=== PATIENT | male | born 1965 | race Caucasian/White ===

== ENCOUNTER 2024-05-21 20:00 | Outpatient (REF) | payer OTHER, SELFPAY ==
[2024-05-23 13:09] LABS: Internal Control Within Normal Limits; Occult Blood Positive
== END 2024-05-21 20:01 | disposition home or self-care (01) ==
LOC: LAB 20:00
PROVIDERS: Family Provider Family Medicine; PCP Family Medicine; Visit Provider Family Medicine
DX: R22.1 Localized swelling, mass and lump, neck (principal); R73.09 Other abnormal glucose; Z12.12 Encounter for screening for malignant neoplasm of rectum; Z12.5 Encounter for screening for malignant neoplasm of prostate
CPT/HCPCS: G0328

== ENCOUNTER 2024-05-23 08:40 | Outpatient (OUT) | payer OTHER, SELFPAY ==
[2024-05-23 09:22] LABS: Basophils Absolute Auto 0.1 10^3/uL (0.0-0.1); Basophils Percent Auto 0.4 % (0.2-2.0); Eosinophils Absolute Auto 0.6 10^3/uL (0.0-0.7); Eosinophils Percent Auto 4.2 % (0.9-7.0); Hemoglobin 11.3 g/dL (14.0-18.0); Immature Granulocytes Abs Auto 0.08 10^3/uL (0.00-0.03); Immature Granulocytes Pct Auto 0.6 % (0.0-0.5); Lymphocytes Absolute Auto 2.6 10^3/uL (1.2-3.8); Lymphocytes Percent Auto 17.9 % (20.5-60.0); Mean Corpuscular HGB Conc 31.4 g/dL (29.9-35.2); Mean Corpuscular Hemoglobin 30.6 pg (25.9-34.0); Mean Corpuscular Volume 97.6 fL (80.0-94.0); Mean Platelet Volume 8.6 fL (9.5-13.5); Monocytes Absolute Auto 1.4 10^3/uL (0.3-0.8); Monocytes Percent Auto 9.5 % (1.7-12.0); Neutrophils Absolute Auto 9.6 10^3/uL (1.4-6.5); Neutrophils Percent Auto 67.4 % (43.0-75.0); Platelet Count 696 10^3/uL (150-450); Red Blood Count 3.69 10^6/uL (4.70-6.10); Red Cell Distribution Width 12.9 % (11.0-15.0); White Blood Count 14.3 10^3/uL (4.0-11.0)
[2024-05-23 09:27] LABS: Estimated Average Glucose 131 mg/dL; Glycohemoglobin A1C 6.2 % (4.5-6.2)
[2024-05-23 12:22] LABS: Alanine Aminotransferase 36 U/L (16-63); Albumin Globulin Ratio 0.7; Albumin Level 2.9 g/dL (3.4-5.0); Alkaline Phosphatase 156 U/L (46-116); Anion Gap 8.6; Aspartate Amino Transferase 15 U/L (15-37); BUN Creatinine Ratio 10.4; Bilirubin Total 0.2 mg/dL (0.2-1.0); Calcium 8.6 mg/dL (8.5-10.1); Chloride 99 mmol/L (98-107); Estimated GFR (African America >60 (>=60); Estimated GFR (Non-African Ame >60 (>=60); Free T3 3.37 pg/mL (2.18-3.98); Glucose 90 mg/dL (74-106); Potassium 3.6 mmol/L (3.5-5.1); Sodium 139 mmol/L (136-145); Total Protein 6.9 g/dL (6.4-8.2); Uric Acid 3.3 mg/dL (3.5-7.2)
[2024-05-23 12:47] LABS: Prostate Specific Antigen Scrn 1.79 ng/mL (<=4.00)
[2024-05-25 11:22] LABS: Alanine Aminotransferase 33 U/L (16-63); Albumin Globulin Ratio 0.7; Albumin Level 2.9 g/dL (3.4-5.0); Alkaline Phosphatase 160 U/L (46-116); Anion Gap 11.3; Aspartate Amino Transferase 17 U/L (15-37); BUN Creatinine Ratio 9.6; Bilirubin Total 0.2 mg/dL (0.2-1.0); Calcium 8.8 mg/dL (8.5-10.1); Carbon Dioxide 32.3 mmol/L (21.0-32.0); Chloride 99 mmol/L (98-107); Chol HDL Ratio 2.5; Cholesterol 113 mg/dL (<=200); Estimated GFR (African America >60 (>=60); Estimated GFR (Non-African Ame >60 (>=60); Glucose 91 mg/dL (74-106); HDL Cholesterol 46 mg/dL (40-60); Potassium 3.6 mmol/L (3.5-5.1); Sodium 139 mmol/L (136-145); Total Protein 6.9 g/dL (6.4-8.2); Triglycerides 155 mg/dL (<=150)
[2024-05-25 13:44] LABS: Thyroid Stimulating Hormone 1.439 uIU/mL (0.358-3.740)
[2024-05-26 04:11] LABS: CEA 4.8 ng/mL (0.0-4.7)
== END 2024-05-23 08:41 | disposition home or self-care (01) ==
PROVIDERS: Family Provider Family Medicine; PCP Family Medicine; Visit Provider Family Medicine
DX: Z00.00 Encounter for general adult medical examination without abnormal findings (principal); Z12.5 Encounter for screening for malignant neoplasm of prostate; R22.1 Localized swelling, mass and lump, neck; E78.5 Hyperlipidemia, unspecified; M10.9 Gout, unspecified; F41.9 Anxiety disorder, unspecified; R97.20 Elevated prostate specific antigen [PSA]; E11.9 Type 2 diabetes mellitus without complications
CPT/HCPCS: 36415; 80053; 80061; 82378; 83036; 84153; 84436; 84443; 84481; 84550; 85025; 86301; G0103

== ENCOUNTER 2024-06-11 16:05 | Outpatient (OUT) | payer OTHER, SELFPAY ==
--- NOTE | 2024-06-11 16:13 | US_ITS ---
The [address] [address] Patient Name: LOKESH ALTAMIRANO MRN: [id number] date: 1965 Sex: M Assigned Patient Location: US Current Patient Location: Accession/Order Number: [id number] Exam Date: 06/11/2024 16:20 Report Date: 06/12/2024 07:22 At the request of: ROOSEVELT BEAVERS Procedure: US soft tissue head and neck EXAM: US soft tissue head and neck HISTORY: NECK MASS R22.1 COMPARISON: None. TECHNIQUE: Grayscale and color ultrasound FINDINGS: Identified in the left neck in the region of the patient's palpable abnormality is a focal lobular heterogeneous 2.8 x 1.8 x 1.9 cm mass with microcalcifications and macrocalcifications. This lesion is adjacent to probably artery jugular vein but not definitively invading the adjacent vascular structures Also noted are inseparable lymph nodes measuring a total of 1.3 x 4.7 x 0.5 cm adjacent to the mass. US/US soft tissue head and neck IMPRESSION: 2.8 cm left neck mass. Malignancy is favored. Further evaluation with CT exam of the neck with contrast is recommended Electronically authenticated by: KIM US Date: 06/12/2024 07:22
== END 2024-06-11 16:06 | disposition home or self-care (01) ==
LOC: US 16:06
PROVIDERS: Family Provider Family Medicine; PCP Family Medicine; Visit Provider Family Medicine
DX: R22.1 Localized swelling, mass and lump, neck (principal)
CPT/HCPCS: 76536

== ENCOUNTER 2024-06-26 16:09 | Outpatient (REF) | payer OTHER, SELFPAY | END 2024-06-26 16:10 | disposition home or self-care (01) | LOC: LAB 16:09 | PROVIDERS: Family Provider Family Medicine; PCP Family Medicine; Visit Provider Family Medicine | DX: R22.1 Localized swelling, mass and lump, neck (principal) | CPT/HCPCS: 87070; 87075 ==

== ENCOUNTER 2024-07-06 09:36 | Outpatient (OUT) | payer OTHER, SELFPAY ==
--- NOTE | 2024-07-06 10:13 | CT_ITS ---
[address] [address] Patient Name: LOKESH ALTAMIRANO MRN: [id number] date: 1965 Sex: M Assigned Patient Location: CT Current Patient Location: Accession/Order Number: [id number] Exam Date: 07/06/2024 10:20 Report Date: 07/07/2024 14:12 At the request of: ROOSEVELT BEAVERS Procedure: CT soft tissue neck w con EXAMINATION: CT soft tissue neck w con HISTORY: Neck Mass R22.1 COMPARISON: Ultrasound soft tissue head and neck 06/11/2024 TECHNIQUE: Axial, Coronal, and Sagittal CT images created with IV contrast. Dose reduction techniques were achieved by using automated exposure control and/or adjustment of mA and/or kV according to patient size and/or use of iterative reconstruction technique. FINDINGS: NASOPHARYNX: No asymmetry of the fossae of Rosenmuller and torus tubarius. ORAL CAVITY: No visible mass. OROPHARYNX: No asymmetry of the facial and lingual tonsils. HYPOPHARYNX: Within the hypopharynx extending inferiorly into the larynx is heterogeneous soft tissue partially surrounding the airway and narrowing the airway. Mass size is approximately 5.1 cm cephalad caudad by 4.4 x 3.9 cm. LARYNX: See above. SINUSES: No significant fluid or mucosal thickening. NECK GLANDS: No visible abnormality of the parotid, submandibular, and thyroid glands. LYMPH NODES: No pathological-appearing or enlarged lymph nodes. VASCULATURE: No suspicious abnormality. BONES: Mechanical fusion C5-C6-7 the anterior plate and screws. Intervertebral disc spacers at both levels. No appreciable hardware fracture loosening. Multilevel degenerative disc disease. OTHER: No additional imaging findings. CT/CT soft tissue neck w con IMPRESSION: 1. 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 This causes narrowing of the airway and likely impedes movement of the vocal cords. 2. No appreciable lymphadenopathy. Electronically authenticated by: TRAVIS IVY Date: 07/07/2024 14:12
== END 2024-07-06 09:37 | disposition home or self-care (01) ==
PROVIDERS: Family Provider Family Medicine; PCP Family Medicine; Visit Provider Family Medicine
DX: R22.1 Localized swelling, mass and lump, neck (principal)
CPT/HCPCS: 70491; Q9967

== ENCOUNTER 2024-07-24 13:27 | Day surgery (SDC) | payer OTHER, SELFPAY ==
--- NOTE | 2024-07-24 13:31 | US_ITS ---
[address] [address] Patient Name: LOKESH ALTAMIRANO MRN: [id number] date: 1965 Sex: M Assigned Patient Location: US Current Patient Location: US Accession/Order Number: [id number] Exam Date: 07/24/2024 13:50 Report Date: 07/24/2024 14:45 At the request of: ROOSEVELT BEAVERS Procedure: US biopsy FNA EXAMINATION: US biopsy FNA HISTORY: Left Neck Mass COMPARISON: No relevant comparison available. TECHNIQUE: After obtaining informed consent, an ultrasound-guided biopsy was performed in the usual sterile manner. FINDINGS: IMAGING: Ultrasound BIOPSY NEEDLE: 25-gauge, 2 inch SPECIMEN TYPE, #, LOCATION: 3 fine-needle aspirates, left neck mass MEDICATION: 2 cc 1% buffered lidocaine COMPLICATIONS: None. LABORATORY: Pending OTHER: Negative. US/US biopsy FNA IMPRESSION: Uneventful ultrasound guided biopsy. The patient was instructed to obtain follow up care and biopsy results from the referring physician. Electronically authenticated by: KIM US Date: 07/24/2024 14:45
[2024-07-24 13:35] VITALS: BP 113/67; PULSE 63; O2SAT 91
[2024-07-24] MEDS: LIDOCAINE HCL 10 ML, SODIUM BICARBONATE 1 MEQ INJ (14:20)
--- NOTE | 2024-07-24 15:55 | SUR.PREOP ---
07/09/24 and 07/10/24 Attempted to reach pt by phone and schedule appt but unable to leave message. 07/10/24 Called a second phone number and left a message to return call. 07/13/24 Called both phone numbers and only able to leave a message on one phone number to return call for appt. 07/14/[address] Schumacher office and left message that I am unable to reach patient to schedule biopsy. 07/20/24 Received phone call from Hien to schedule appt and reviewed procedure, date, time,and prep.
== END 2024-07-24 13:40 | disposition home or self-care (01) ==
LOC: US 13:27
PROVIDERS: Radiology Diagnostic Radiology; Family Provider Family Medicine; PCP Family Medicine; Visit Provider Family Medicine
DX: R22.1 Localized swelling, mass and lump, neck (principal); L02.11 Cutaneous abscess of neck
CPT/HCPCS: 10005; 88173; 88305

== ENCOUNTER 2024-08-30 17:26 | Emergency (ER) | payer OTHER, SELFPAY ==
[2024-08-30 17:33] VITALS: BP 108/63; PULSE 70; TEMP 36.9; O2SAT 94; BMI 13.2
--- OUTSIDE RECORDS SUMMARY | 2024-08-30 17:33 | XMS_ITS | CCD ---
Author Organization [facility] Care Team Providers Care Barn Hand Name Role Phone NO FAMILY, PHYSICIAN Primary Care Provider Unava MD Roosevelt Colon Attending Provider [phone] Roosevelt Cantrell Attending Unavailable Roosevelt Cantrell Admitting Unavailable NO FAMILY, PHYSICIAN Primary Care Unavailable CAPRI ARREDONDO Attending Unavailable ROOSEVELT CANTRELL Referring Unavailable GARCIA GALVAN Primary Care Unavailable EVERTON JARRELL Admitting Unavailable EVERTON JARRELL Attending Unavailable DAVID CRZU Referring Unavailable GARCIA GALVAN Primary Care Unavailable Allergies Allergy Classification Reported Allergen(s) Allergy Type Date of Onset Reaction(s) Facility (2 sources) Acetaminophen; Translations: [acetaminophen] Drug Allergy 11-12-2017 [facility] (2 sources) HYDROcodone; Translations: [hydrocodone] Drug Allergy 11-12-2017 [facility] (3 sources) Morphine; Translations: [morphine] Drug Allergy 11-12-2017 [facility] Medications Current Medications Medication Drug Class(es) Dates Sig (Normalized) Sig (Original) acetaminophen 325 mg / oxyCODONE hydrochloride 5 mg oral tablet (1 source) Opioid Agonist Start: 11-12-2017 Oxycodone-Acetamin ophen Active 1 TAB PO As Directed November 12, 2017 1:00am pantoprazole 40 mg delayed release oral tablet (1 source) Proton Pump Inhibitor Start: 11-12-2017 take 40 mg by mouth once daily Pantoprazole Active 40 MG PO Daily November 12, 2017 1:00am raNITIdine 150 mg oral tablet (1 source) Histamine-2 Receptor Antagonist Start: 11-12-2017 take 150 mg by mouth twice daily Ranitidine Hcl Active 150 MG PO Twice daily November 12, 2017 1:00am Problems Problem Classification Problem Date Documented Da te Episodic/Chronic Cancer of esophagus (4 sources) Malignant neoplasm of esophagus, unspecified; Translations: [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] Onset: 08-19-2024 Chronic Chronic obstructive pulmonary disease and bronchiectasis (2 sources) Chronic obstructive pulmonary disease, unspecified; Translations: [Chronic obstructive pulmonary disease, unspecified] Onset: 08-19-2024 Chronic Other gastrointestinal disorders (2 sources) Other specified disorders of peritoneum; Translations: [Other specified disorders of peritoneum] Onset: 08-19-2024 Episodic Other nervous system disorders (2 sources) Neoplasm related pain (acute) (chronic); Translations: [Neoplasm related pain (acute) (chronic)] Onset: 08-19-2024 Chronic Results Test Name Value Interpretation Reference Range Facility CBC panel Auto (Bld)on 08-25 Erythrocyte distribution width (RBC) [Ratio] 12.9 % Normal 11.5-14.5 [facility] Comment on above: Performed By: #### 5 8410-2 ####KALEIGH Novak ([id number])[facility] ([facility])[address] [place] [address] Hematocrit (Bld) [Volume fraction] 33.5 % Low 41.0-52.0 [facility] Comment on above: Performed By: #### 5 8410-2 ####KALEIGH Novak ([id number])[facility] ([facility])[address] [place] [address] 27[address] Hemoglobin (Bld) [Mass/Vol] 10.4 g/dL Low 13.5-17.5 [facility] Comment on above: Performed By: #### 5 8410-2 ####KALEIGH Novak ([id number])[facility] ([facility])[address] [place] [address] 19770 MCH (RBC) [Entitic mass] 29.8 pg Normal 26.0-34.0 [facility] Comment on above: Performed By: #### 5 8410-2 ####KALEIGH Novak ([id number])[facility] ([facility])[address] [place] [address] 78187 MCHC (RBC) [Mass/Vol] 31.0 g/dL Low 32.0-36.0 [facility] Comment on above: Performed By: #### 5 8410-2 ####KALEIGH Novak (69004)[facility])[address] [place] [address] MCV (RBC) [Entitic vol] 96 fL Normal 80-100 [facility] Comment on above: Performed By: #### 5 8410-2 ####KALEIGH Novak ([id number])[facility])[address] [place] [address] Nucleated RBC/100 WBC (Bld) [Ratio] 0.0 /100 WBCs Normal 0.0-0.0 [facility] Comment on above: Performed By: #### 5 8410-2 ####KALEIGH Novka ([id number])[facility])[address] [place] [address] Platelets (Bld) [#/Vol] 487 x10*3/uL High 150-450 [facility] Comment on above: Performed By: #### 5 8410-2 ####KALEIGH Novak (90449)[facility])[address] [place] [address] RBC (Bld) [#/Vol] 3.49 x10*6/uL Low 4.50-5.90 [facility] Comment on above: Performed By: #### 5 8410-2 ####KALEIGH Novak ([id number])[facility])[address] [place] [address] WBC (Bld) [#/Vol] 9.4 x10*3/uL Normal 4.4-11.3 [facility] Comment on above: Performed By: #### 5 8410-2 ####KALEIGH Novak ([id number])[facility])[address] [place] [address] Magnesiumon 08-25-2024 Magnesium [Mass/Vol] 2.17 mg/dL Normal 1.60-2.40 [facility] Comment on above: Performed By: #### 1 9123-9 ####KALEIGH Novak ([id number])[facility])[address] [place] [address] Renal function 2000 panelon 08-25-2024 Albumin BCP dye [Mass/Vol] 2.7 g/dL Low 3.4-5.0 [facility] Comment on above: Performed By: #### 2 4362-6 ####KALEIGH Novak ([id number])[facility])[address] [place] [address] Anion gap [Moles/Vol] 10 mmol/L Normal 10-20 [facility] Comment on above: Performed By: #### 2 4362-6 ####KALEIGH Novak ([id number])[facility])[address] [place] [address] Calcium [Mass/Vol] 8.1 mg/dL Low 8.6-10.6 [facility] Comment on above: Performed By: #### 2 4362-6 ####KALEIGH Novak ([id number])[facility])[address] [place] [address] Chloride [Moles/Vol] 101 mmol/L Normal 98-107 [facility] Comment on above: Performed By: #### 2 4362-6 ####KALEIGH Novak ([id number])[facility])[address] [place] [address] CO2 [Moles/Vol] 32 mmol/L Normal 21-32 [facility] Comment on above: Performed By: #### 2 4362-6 ####KALEIGH Novak (51935)[facility])[address] [place] [address] Creatinine [Mass/Vol] 0.48 mg/dL Low 0.50-1.30 [facility] Comment on above: Performed By: #### 2 4362-6 ####KALEIGH Novak ([id number])[facility])[address] [place] [address] GFR/1.73 sq M.predicted MDRD (S/P/Bld) [Vol rate/Area] mL/min/{1.73_m2} Normal >60 [facility] Comment on above: Result Comment: Calc ulations of estimated GFR are performed using the 2020 CKD-EPI Study Refit equation without the race variable for the IDMS-Traceable creatinine methods. https://jasn.asnjournals.org/content//ASN.853322295 8 Performed By: #### 2 4362-6 ####KALEIGH Novak ([id number])[facility])[address] [place] [address] Glucose [Mass/Vol] 108 mg/dL High 74-99 [facility] Comment on above: Performed By: #### 2 4362-6 ####KALEIGH Novak (35555)[facility])[address] [place] [address] Phosphate [Mass/Vol] 2.5 mg/dL Normal 2.5-4.9 [facility] Comment on above: Result Comment: The performance characteristics of phosphorus testing in heparinized plasma have been validated by the individual laboratory site where testing is performed. Testing on heparinized plasma is not approved by the FDA; however, such approval is not necessary. Performed By: #### 2 4362-6 ####KALEIGH Novak ([id number])[facility] ([facility])[address] [place] [address] Potassium [Moles/Vol] 3.2 mmol/L Low 3.5-5.3 [facility] Comment on above: Performed By: #### 2 4362-6 ####KALEIGH Novak (25927)[facility])[address] [place] [address] Sodium [Moles/Vol] 140 mmol/L Normal 136-145 [facility] Comment on above: Performed By: #### 2 4362-6 ####KALEIGH Novak (09619)[facility])[address] [place] [address] Urea nitrogen [Mass/Vol] 13 mg/dL Normal 6-23 [facility] Comment on above: Performed By: #### 2 4362-6 ####KALEIGH Novak ([id number])[facility])[address] [place] [address] CBC panel Auto (Bld)on 08-24 Erythrocyte distribution width (RBC) [Ratio] 12.8 % Normal 11.5-14.5 [facility] Comment on above: Performed By: #### 5 8410-2 ####KALEIGH Novak (86792)[facility] ([facility])[address] [place] [address] Hematocrit (Bld) [Volume fraction] 29.5 % Low 41.0-52.0 [facility] Comment on above: Performed By: #### 5 8410-2 ####KALEIGH Novak (63530)[facility])[address] [place] [address] Hemoglobin (Bld) [Mass/Vol] 9.3 g/dL Low 13.5-17.5 [facility] Comment on above: Performed By: #### 5 8410-2 ####KALEIGH Novak ([id number])[facility])[address] [place] [address]320 MCH (RBC) [Entitic mass] 29.5 pg Normal 26.0-34.0 [facility] Comment on above: Performed By: #### 5 8410-2 ####KALEIGH Novak (63944)[facility])[address] [place] [address] MCHC (RBC) [Mass/Vol] 31.5 g/dL Low 32.0-36.0 [facility] Comment on above: Performed By: #### 5 8410-2 ####KALEIGH Novak ([id number])[facility])[address] [place] [address] MCV (RBC) [Entitic vol] 94 fL Normal 80-100 [facility] Comment on above: Performed By: #### 5 8410-2 ####KALEIGH Novak (39444)[facility])[address] [place] [address]121 Nucleated RBC/100 WBC (Bld) [Ratio] 0.0 /100 WBCs Normal 0.0-0.0 [facility] Comment on above: Performed By: #### 5 8410-2 ####KALEIGH Novak (69708)[facility])[address] [place] [address] Platelets (Bld) [#/Vol] 393 x10*3/uL Normal 150-450 [facility] Comment on above: Performed By: #### 5 8410-2 ####KALEIGH Novak (90385)[facility] ([facility])[address] [place] [address] 90896 RBC (Bld) [#/Vol] 3.15 x10*6/uL Low 4.50-5.90 [facility] Comment on above: Performed By: #### 5 8410-2 ####KALEIGH Novak (21531)[facility] ([facility])[address] [place] [address]3334 WBC (Bld) [#/Vol] 9.9 x10*3/uL Normal 4.4-11.3 [facility] Comment on above: Performed By: #### 5 8410-2 ####KALEIGH Novak ([id number])[facility] ([facility])[address] [place] [address] Magnesiumon 08-24-2024 Magnesium [Mass/Vol] 1.96 mg/dL Normal 1.60-2.40 [facility] Comment on above: Performed By: #### 1 9123-9 ####KALEIGH Novak (37596)[facility])[address] [place] [address] Renal function 2000 panelon 08-24-2024 Albumin BCP dye [Mass/Vol] 2.5 g/dL Low 3.4-5.0 [facility] Comment on above: Performed By: #### 2 4362-6 ####KALEIGH CURRY L (51277)[facility])[address] [place] [address] Anion gap [Moles/Vol] 10 mmol/L Normal 10-20 [facility] Comment on above: Performed By: #### 2 4362-6 ####KALEIGH CURRY L (08375)[facility])[address] [place] [address] Calcium [Mass/Vol] 7.8 mg/dL Low 8.6-10.6 [facility] Comment on above: Performed By: #### 2 4362-6 ####KALEIGH CURRY L (06357)[facility])[address] [place] [address] Chloride [Moles/Vol] 103 mmol/L Normal 98-107 [facility] Comment on above: Performed By: #### 2 4362-6 ####KALEIGH CURRY L (21701)[facility])[address] [place] [address] CO2 [Moles/Vol] 30 mmol/L Normal 21-32 [facility] Comment on above: Performed By: #### 2 4362-6 ####KALEIGH CURRY L (74521)[facility])[address] [place] [address] Creatinine [Mass/Vol] 0.42 mg/dL Low 0.50-1.30 [facility] Comment on above: Performed By: #### 2 4362-6 ####KALEIGH CURRY L (94744)[facility])[address] [place] [address] GFR/1.73 sq M.predicted MDRD (S/P/Bld) [Vol rate/Area] mL/min/{1.73_m2} Normal >60 [facility] Comment on above: Result Comment: Calc ulations of estimated GFR are performed using the 2020 CKD-EPI Study Refit equation without the race variable for the IDMS-Traceable creatinine methods. https://jasn.asnjournals.org/content//ASN.717446634 8 Performed By: #### 2 4362-6 ####KALEIGH Novak (86725)[facility])[address] [place] [address] Glucose [Mass/Vol] 93 mg/dL Normal 74-99 [facility] Comment on above: Performed By: #### 2 4362-6 ####KALEIGH Novak (94741)[facility])[address] [place] [address] Phosphate [Mass/Vol] 2.6 mg/dL Normal 2.5-4.9 [facility] Comment on above: Result Comment: The performance characteristics of phosphorus testing in heparinized plasma have been validated by the individual laboratory site where testing is performed. Testing on heparinized plasma is not approved by the FDA; however, such approval is not necessary. Performed By: #### 2 4362-6 ####KALEIGH Novak (48255)[facility])[address] [place] [address] Potassium [Moles/Vol] 3.8 mmol/L Normal 3.5-5.3 [facility] Comment on above: Performed By: #### 2 4362-6 ####KALEIGH Novak (82479)[facility])[address] [place] [address] Sodium [Moles/Vol] 139 mmol/L Normal 136-145 [facility] Comment on above: Performed By: #### 2 4362-6 ####KALEIGH Novak (50127)[facility])[address] [place] [address] Urea nitrogen [Mass/Vol] 10 mg/dL Normal 6-23 [facility] Comment on above: Performed By: #### 2 4362-6 ####KALEIGH Novak ([id number])[facility])[address] [place] [address]397 CBC panel Auto (Bld)on 08-23 Erythrocyte distribution width (RBC) [Ratio] 12.6 % Normal 11.5-14.5 [facility] Comment on above: Performed By: #### 2 4323-8 #### KALEIGH Novak (86694) [facility]) [address] [place] [address] Hematocrit (Bld) [Volume fraction] 32.6 % Low 41.0-52.0 [facility] Comment on above: Performed By: #### 2 4323-8 #### KALEIGH Novak (76384) [facility]) [address] [place] [address]87[address] Hemoglobin (Bld) [Mass/Vol] 10.7 g/dL Low 13.5-17.5 [facility] Comment on above: Performed By: #### 2 4323-8 #### KALEIGH Novak (19938) [facility]) [address] [place] [address] 31025 MCH (RBC) [Entitic mass] 29.9 pg Normal 26.0-34.0 [facility] Comment on above: Performed By: #### 2 4323-8 #### KALEIGH Novak (84073) [facility]) [address] [place] [address]60 MCHC (RBC) [Mass/Vol] 32.8 g/dL Normal 32.0-36.0 [facility] Comment on above: Performed By: #### 2 4323-8 #### KALEIGH Novak (15498) [facility]) [address] [place] [address]706 MCV (RBC) [Entitic vol] 91 fL Normal 80-100 [facility] Comment on above: Performed By: #### 2 4323-8 #### KALEIGH Novak (90449) [facility]) [address] [place] [address] 22796 Nucleated RBC/100 WBC (Bld) [Ratio] 0.0 /100 WBCs Normal 0.0-0.0 [facility] Comment on above: Performed By: #### 2 4323-8 #### KALEIGH Novak (49539) [facility]) [address] [place] [address]402 Platelets (Bld) [#/Vol] 427 x10*3/uL Normal 150-450 [facility] Comment on above: Performed By: #### 2 4323-8 #### KALEIGH Novak (59906) [facility]) [address] [place] [address] 07893 RBC (Bld) [#/Vol] 3.58 x10*6/uL Low 4.50-5.90 [facility] Comment on above: Performed By: #### 2 4323-8 #### KALEIGH Novak (81166) [facility]) [address] [place] [address] 54629 WBC (Bld) [#/Vol] 13.3 x10*3/uL High 4.4-11.3 [facility] Comment on above: Performed By: #### 2 4323-8 #### KALEIGH Novak (43020) [facility]) [address] [place] [address]4526 Cobalaminson 08-23-2024 Cobalamin (Vitamin B12) [Mass/Vol] 1792 pg/mL High 211-911 [facility] Comment on above: Performed By: #### 2 4323-8 #### KALEIGH Novak ([id number]) [facility]) [address] [place] [address] 12788 Ferritinon 08-23-2024 Ferritin [Mass/Vol] 533 ng/mL High 20-300 [facility] Comment on above: Performed By: #### 2 4323-8 #### KALEIGH Novak (86084) [facility]) [address] [place] [address] 90031 Folateon 08-23-2024 Folate [Mass/Vol] 10.8 ng/mL Normal >5.0 [facility] Comment on above: Order Comment: Low < 3.4Borderline 3.4-5.0Normal >5.0Patients receiving more than 5 mg/day of biotin may have interference in test results. A sample should be taken no sooner than eight hours after previous dose. Contact the testing laboratory for additional information. Performed By: #### 2 4323-8 #### KALEIGH Novak ([id number]) [facility]) [address] [place] [address] 47036 Iron and Iron binding capaci ty panelon 08-23-2024 Iron [Mass/Vol] 63 ug/dL Normal 35-150 [facility] Comment on above: Performed By: #### 5 0190-8 ####KALEIGH Novak ([id number])[facility])[address] [place] [address] 51638 Iron binding capacity [Mass/Vol] 166 ug/dL Low 240-445 [facility] Comment on above: Performed By: #### 5 0190-8 ####KALEIGH Novak (63396)[facility] ([facility])[address] [place] [address] 98811 Iron binding capacity.unsaturat ed [Mass/Vol] 103 ug/dL Low 110-370 [facility] Comment on above: Performed By: #### 5 0190-8 ####KALEIGH Novak (99728)[facility])[address] [place] [address] 84441 Iron saturation [Mass fraction] 38 % Normal 25-45 [facility] Comment on above: Performed By: #### 5 0190-8 ####KALEIGH Novak (03072)[facility])[address] [place] [address] Magnesiumon 08-23-2024 Magnesium [Mass/Vol] 1.97 mg/dL Normal 1.60-2.40 [facility] Comment on above: Performed By: #### 2 4323-8 #### KALEIGH Novak (47533) [facility]) [address] [place] [address] Procalcitoninon 08-23-2024 Procalcitonin [Mass/Vol] 0.18 ng/mL High <=0.07 [facility] Comment on above: Order Comment: Proca lcitonin (PCT) results measured serially canaid in decision-making for antibiotic discontinuation inpatients with suspected or confirmed sepsis in conjunctionwith additional clinical information. Antibioticdiscontinuation may be considered with a change in PCT of>80% from the peak result or when PCT falls below 0.50 ng/mL.Procalcitonin results should not be used in isolation butshould be interpreted in conjunction with additional clinicaland laboratory findings. Procalcitonin results should not beused to guide the initiation of antibiotic therapy.Falsely low PCT values in the presence of bacterial infectionmay occur in early infection, with atypical pathogens,localized infections, and subacute infectious endocarditis.Falsely elevated results outside of severe bacterialinfection/sepsis may be seen in patients with renal failureor insufficiency, severe trauma or mcclelland, recent majorabdominal/cardiac surgery, acute multi-organ failure, rarelyin patients with medullary thyroid carcinoma and rareneuroendocrine tumors, and non-specific interfering antibodies(heterophile antibodies, rheumatoid factor, human anti-mouseantibodies (HAMA), etc).Performance of the PCT test in pediatric patients (<18yo), women, immunocompromised patients, and patients onimmunomodulatory medications has not been evaluated. Performed By: #### 3 3959-8 ####KALEIGH Novak ([id number])[facility])[address] [place] [address] Renal function 2000 panelon 08-23-2024 Albumin BCP dye [Mass/Vol] 3.1 g/dL Low 3.4-5.0 [facility] Comment on above: Performed By: #### 2 4323-8 #### KALEIGH CURRY L (18381) [facility]) [address] [place] [address] Anion gap [Moles/Vol] 14 mmol/L Normal 10-20 [facility] Comment on above: Performed By: #### 2 4323-8 #### KALEIGH CURRY L (17045) [facility]) [address] [place] [address] Calcium [Mass/Vol] 8.5 mg/dL Low 8.6-10.6 [facility] Comment on above: Performed By: #### 2 4323-8 #### KALEIGH CURRY L (69735) [facility]) [address] [place] [address] 11202 Chloride [Moles/Vol] 100 mmol/L Normal 98-107 [facility] Comment on above: Performed By: #### 2 4323-8 #### KALEIGH CURRY L (19683) [facility]) [address] [place] [address] CO2 [Moles/Vol] 29 mmol/L Normal 21-32 [facility] Comment on above: Performed By: #### 2 4323-8 #### KALEIGH CURRY L (30575) [facility]) [address] [place] [address] Creatinine [Mass/Vol] 0.49 mg/dL Low 0.50-1.30 [facility] Comment on above: Performed By: #### 2 4323-8 #### KALEIGH MORILLOMOTZER L (10664) [facility]) [address] [place] [address]1893 GFR/1.73 sq M.predicted MDRD (S/P/Bld) [Vol rate/Area] mL/min/{1.73_m2} Normal >60 [facility] Comment on above: Result Comment: Calc ulations of estimated GFR are performed using the 2020 CKD-EPI Study Refit equation without the race variable for the IDMS-Traceable creatinine methods. https://jasn.asnjournals.org/content//ASN.004767181 8 Performed By: #### 2 4323-8 #### KALEIGH CURRY L (70751) [facility]) [address] [place] [address] Glucose [Mass/Vol] 107 mg/dL High 74-99 [facility] Comment on above: Performed By: #### 2 4323-8 #### KALEIGH CURRY L (85887) [facility]) [address] [place] [address] Phosphate [Mass/Vol] 2.7 mg/dL Normal 2.5-4.9 [facility] Comment on above: Result Comment: The performance characteristics of phosphorus testing in heparinized plasma have been validated by the individual laboratory site where testing is performed. Testing on heparinized plasma is not approved by the FDA; however, such approval is not necessary. Performed By: #### 2 4323-8 #### KALEIGH CURRY L ([id number]) [facility]) [address] [place] [address] Potassium [Moles/Vol] 3.6 mmol/L Normal 3.5-5.3 [facility] Comment on above: Performed By: #### 2 4323-8 #### KALEIGH CURRY L (72007) [facility]) [address] [place] [address] Sodium [Moles/Vol] 139 mmol/L Normal 136-145 [facility] Comment on above: Performed By: #### 2 4323-8 #### KALEIGH MORILLOMOTZER L ([id number]) [facility] ([facility]) [address] [place] [address] Urea nitrogen [Mass/Vol] 9 mg/dL Normal 6-23 [facility] Comment on above: Performed By: #### 2 4323-8 #### KALEIGH MORILLOMOTZER L ([id number]) [facility] ([facility]) [address] [place] [address] Albumin BCP dye [Mass/Vol] 2.8 g/dL Low 3.4-5.0 [facility] Comment on above: Performed By: #### 2 4323-8 #### KALEIGH Novak ([id number]) [facility] ([facility]) [address] [place] [address] 35833 Anion gap [Moles/Vol] 10 mmol/L Normal 10-20 [facility] Comment on above: Performed By: #### 2 4323-8 #### KALEIGH Novak ([id number]) [facility] ([facility]) [address] [place] [address] 01198 Calcium [Mass/Vol] 8.0 mg/dL Low 8.6-10.6 [facility] Comment on above: Performed By: #### 2 4323-8 #### KALEIGH Novak ([id number]) [facility] ([facility]) [address] [place] [address] 13259 Chloride [Moles/Vol] 101 mmol/L Normal 98-107 [facility] Comment on above: Performed By: #### 2 4323-8 #### KALEIGH Novak ([id number]) [facility] ([facility]) [address] [place] [address] 10269 CO2 [Moles/Vol] 30 mmol/L Normal 21-32 [facility] Comment on above: Performed By: #### 2 4323-8 #### KALEIGH Novak ([id number]) [facility] ([facility]) [address] [place] [address] 78105 Creatinine [Mass/Vol] 0.42 mg/dL Low 0.50-1.30 [facility] Comment on above: Performed By: #### 2 4323-8 #### KALEIGH Novak ([id number]) [facility] ([facility]) [id number] [place] [address] 73392 GFR/1.73 sq M.predicted MDRD (S/P/Bld) [Vol rate/Area] mL/min/{1.73_m2} Normal >60 [facility] Comment on above: Result Comment: Calc ulations of estimated GFR are performed using the 2020 CKD-EPI Study Refit equation without the race variable for the IDMS-Traceable creatinine methods. https://jasn.asnjournals.org/content//ASN.762353310 8 Performed By: #### 2 4323-8 #### KALEIGH Novak ([id number]) [facility] ([facility]) [address] [place] [address] Glucose [Mass/Vol] 136 mg/dL High 74-99 [facility] Comment on above: Performed By: #### 2 4323-8 #### KALEIGH Novak ([id number]) [facility] ([facility]) [address] [place] [address] 07438 Phosphate [Mass/Vol] 2.4 mg/dL Low 2.5-4.9 [facility] Comment on above: Result Comment: The performance characteristics of phosphorus testing in heparinized plasma have been validated by the individual laboratory site where testing is performed. Testing on heparinized plasma is not approved by the FDA; however, such approval is not necessary. Performed By: #### 2 4323-8 #### KALEIGH Novak ([id number]) [facility] ([facility]) [address] [place] [address] 50607 Potassium [Moles/Vol] 3.4 mmol/L Low 3.5-5.3 [facility] Comment on above: Performed By: #### 2 4323-8 #### KALEIGH Novak ([id number]) [facility] ([facility]) [address] [place] [address] Sodium [Moles/Vol] 138 mmol/L Normal 136-145 [facility] Comment on above: Performed By: #### 2 4323-8 #### KALEIGH Novak ([id number]) [facility] ([facility]) [address] [place] [address] 86764 Urea nitrogen [Mass/Vol] 12 mg/dL Normal 6-23 [facility] Comment on above: Performed By: #### 2 4323-8 #### KALEIGH Novak ([id number]) [facility] ([facility]) [address] [place] [address] 66840 Transferrinon 08-23-2024 Transferrin [Mass/Vol] 115 mg/dL Low 200-360 [facility] Comment on above: Performed By: #### 2 4323-8 #### KALEIGH Novak ([id number]) [facility] ([facility]) [address] [place] [address] 17548 CBC panel Auto (Bld)on 08-22 Erythrocyte distribution width (RBC) [Ratio] 12.9 % Normal 11.5-14.5 [facility] Comment on above: Performed By: #### 5 902-2 #### KALEIGH Novak ([id number]) [facility] ([facility]) [address] [place] [address] 50168 Hematocrit (Bld) [Volume fraction] 30.4 % Low 41.0-52.0 [facility] Comment on above: Performed By: #### 5 902-2 #### KALEIGH Novak ([id number]) [facility] ([facility]) [address] [place] [address] 10671 Hemoglobin (Bld) [Mass/Vol] 9.9 g/dL Low 13.5-17.5 [facility] Comment on above: Performed By: #### 5 902-2 #### KALEIGH Novak ([id number]) [facility] ([facility]) [address] [place] [address] 53106 MCH (RBC) [Entitic mass] 29.6 pg Normal 26.0-34.0 [facility] Comment on above: Performed By: #### 5 902-2 #### KALEIGH Novak (59634) [facility] ([facility]) [address] [place] [address] 01075 MCHC (RBC) [Mass/Vol] 32.6 g/dL Normal 32.0-36.0 [facility] Comment on above: Performed By: #### 5 902-2 #### KALEIGH Novak ([id number]) [facility] ([facility]) [address] [place] [address] MCV (RBC) [Entitic vol] 91 fL Normal 80-100 [facility] Comment on above: Performed By: #### 5 902-2 #### KALEIGH Novak ([id number]) [facility] ([facility]) [address] [place] [address] 00666 Nucleated RBC/100 WBC (Bld) [Ratio] 0.0 /100 WBCs Normal 0.0-0.0 [facility] Comment on above: Performed By: #### 5 902-2 #### KALEIGH Novak ([id number]) [facility] ([facility]) [address] [place] [address] 50174 Platelets (Bld) [#/Vol] 452 x10*3/uL High 150-450 [facility] Comment on above: Performed By: #### 5 902-2 #### KALEIGH Novak ([id number]) [facility] ([facility]) [address] [place] [address] 05069 RBC (Bld) [#/Vol] 3.34 x10*6/uL Low 4.50-5.90 [facility] Comment on above: Performed By: #### 5 902-2 #### KALEIGH Novak (71609) [facility] ([facility]) [address] [place] [address] 16545 WBC (Bld) [#/Vol] 11.7 x10*3/uL High 4.4-11.3 [facility] Comment on above: Performed By: #### 5 902-2 #### KALEIGH CURRY L ([id number]) [facility] ([facility]) [address] [place] [address] 75214 Magnesiumon 08-22-2024 Magnesium [Mass/Vol] 1.95 mg/dL Normal 1.60-2.40 [facility] Comment on above: Performed By: #### 5 902-2 #### KALEIGH CURRY L ([id number]) [facility] ([facility]) [address] [place] [address] Renal function 2000 panelon 08-22-2024 Albumin BCP dye [Mass/Vol] 2.7 g/dL Low 3.4-5.0 [facility] Comment on above: Performed By: #### 2 4323-8 #### KALEIGH CURRY L ([id number]) [facility] ([facility]) [address] [place] [address] 34878 Anion gap [Moles/Vol] 13 mmol/L Normal 10-20 [facility] Comment on above: Performed By: #### 2 4323-8 #### KALEIGH CURRY L (13646) [facility] ([facility]) [address] [place] [address] 57349 Calcium [Mass/Vol] 7.9 mg/dL Low 8.6-10.6 [facility] Comment on above: Performed By: #### 2 4323-8 #### KALEIGH CURRY L ([id number]) [facility] ([facility]) [address] [place] [address] 65953 Chloride [Moles/Vol] 103 mmol/L Normal 98-107 [facility] Comment on above: Performed By: #### 2 4323-8 #### KALEIGH MORILLOMOTZER L ([id number]) [facility] ([facility]) [address] [place] [address] CO2 [Moles/Vol] 25 mmol/L Normal 21-32 [facility] Comment on above: Performed By: #### 2 4323-8 #### KALEIGH ARTEAGAER L (61043) [facility] ([facility]) [address] [place] [address] 22342 Creatinine [Mass/Vol] 0.54 mg/dL Normal 0.50-1.30 [facility] Comment on above: Performed By: #### 2 4323-8 #### KALEIGH MORILLOMOSAHILER L (24884) [facility] ([facility]) [address] [place] [address] 54461 GFR/1.73 sq M.predicted MDRD (S/P/Bld) [Vol rate/Area] mL/min/{1.73_m2} Normal >60 [facility] Comment on above: Result Comment: Calc ulations of estimated GFR are performed using the 2020 CKD-EPI Study Refit equation without the race variable for the IDMS-Traceable creatinine methods. https://jasn.asnjournals.org/content//ASN.164563498 8 Performed By: #### 2 4323-8 #### KALEIGH Novak ([id number]) [facility] ([facility]) [address] [place] [address] Glucose [Mass/Vol] 81 mg/dL Normal 74-99 [facility] Comment on above: Performed By: #### 2 4323-8 #### KALEIGH Novak (50428) [facility] ([facility]) [address] [place] [address] Phosphate [Mass/Vol] 2.3 mg/dL Low 2.5-4.9 [facility] Comment on above: Result Comment: The performance characteristics of phosphorus testing in heparinized plasma have been validated by the individual laboratory site where testing is performed. Testing on heparinized plasma is not approved by the FDA; however, such approval is not necessary. Performed By: #### 2 4323-8 #### KALEIGH Novak ([id number]) [facility] ([facility]) [address] [place] [address] Potassium [Moles/Vol] 3.2 mmol/L Low 3.5-5.3 [facility] Comment on above: Performed By: #### 2 4323-8 #### KALEIGH Novak (08144) [facility] ([facility]) [address] [place] [address] 09625 Sodium [Moles/Vol] 138 mmol/L Normal 136-145 [facility] Comment on above: Performed By: #### 2 4323-8 #### KALEIGH Novak ([id number]) [facility] ([facility]) [address] [place] [address] 86696 Urea nitrogen [Mass/Vol] 20 mg/dL Normal 6-23 [facility] Comment on above: Performed By: #### 2 4323-8 #### KALEIGH Novak (57328) [facility] ([facility]) [address] [place] [address] 53727 CBC panel Auto (Bld)on 08-21 Erythrocyte distribution width (RBC) [Ratio] 12.6 % Normal 11.5-14.5 [facility] Comment on above: Performed By: #### 5 902-2 #### KALEIGH Novak (97776) [facility] ([facility]) [address] [place] [address] 88703 Hematocrit (Bld) [Volume fraction] 28.4 % Low 41.0-52.0 [facility] Comment on above: Performed By: #### 5 902-2 #### KALEIGH Novak (13213) [facility] ([facility]) [address] [place] [address] 83342 Hemoglobin (Bld) [Mass/Vol] 9.8 g/dL Low 13.5-17.5 [facility] Comment on above: Performed By: #### 5 902-2 #### KALEIGH Novak (79115) [facility] ([facility]) [address] [place] [address] 51531 MCH (RBC) [Entitic mass] 30.1 pg Normal 26.0-34.0 [facility] Comment on above: Performed By: #### 5 902-2 #### KALEIGH Novak (34891) [facility] ([facility]) [address] [place] [address] 21539 MCHC (RBC) [Mass/Vol] 34.5 g/dL Normal 32.0-36.0 [facility] Comment on above: Performed By: #### 5 902-2 #### KALEIGH Novak (00653) [facility] ([facility]) [address] [place] [address] 74266 MCV (RBC) [Entitic vol] 87 fL Normal 80-100 [facility] Comment on above: Performed By: #### 5 902-2 #### KALEIGH Novak (43903) [facility] ([facility]) [address] [place] [address] 14450 Nucleated RBC/100 WBC (Bld) [Ratio] 0.0 /100 WBCs Normal 0.0-0.0 [facility] Comment on above: Performed By: #### 5 902-2 #### KALEIGH Novak (66112) [facility] ([facility]) [address] [place] [address] 16072 Platelets (Bld) [#/Vol] 427 x10*3/uL Normal 150-450 [facility] Comment on above: Performed By: #### 5 902-2 #### KALEIGH Novak (07914) [facility] ([facility]) [address] [place] [address] 74678 RBC (Bld) [#/Vol] 3.26 x10*6/uL Low 4.50-5.90 [facility] Comment on above: Performed By: #### 5 902-2 #### KALEIGH Novak (81704) [facility] ([facility]) [address] [place] [address] 48275 WBC (Bld) [#/Vol] 14.4 x10*3/uL High 4.4-11.3 [facility] Comment on above: Performed By: #### 5 902-2 #### KALEIGH Novak (54774) [facility] ([facility]) [address] [place] [address] 88270 Erythrocyte distribution width (RBC) [Ratio] 12.7 % Normal 11.5-14.5 [facility] Comment on above: Performed By: #### 5 7021-8 #### KALEIGH Novak (54379) [facility] ([facility]) [address] [place] [address] 08852 Hematocrit (Bld) [Volume fraction] 36.3 % Low 41.0-52.0 [facility] Comment on above: Performed By: #### 5 7021-8 #### KALEIGH Novak (14474) [facility] ([facility]) [address] [place] [address] 12169 Hemoglobin (Bld) [Mass/Vol] 11.2 g/dL Low 13.5-17.5 [facility] Comment on above: Performed By: #### 5 7021-8 #### KALEIGH Novak (99941) [facility] ([facility]) [address] [place] [address] 51288 MCH (RBC) [Entitic mass] 29.6 pg Normal 26.0-34.0 [facility] Comment on above: Performed By: #### 5 7021-8 #### KALEIGH Novak (43689) [facility] ([facility]) [address] [place] [address] 91763 MCHC (RBC) [Mass/Vol] 30.9 g/dL Low 32.0-36.0 [facility] Comment on above: Performed By: #### 5 7021-8 #### KALEIGH Novak ([id number]) [facility] ([facility]) [address] [place] [address] 94260 MCV (RBC) [Entitic vol] 96 fL Normal 80-100 [facility] Comment on above: Performed By: #### 5 7021-8 #### KALEIGH Novak (12789) [facility] ([facility]) [address] [place] [address] 95037 Nucleated RBC/100 WBC (Bld) [Ratio] 0.0 /100 WBCs Normal 0.0-0.0 [facility] Comment on above: Performed By: #### 5 7021-8 #### KALEIGH Novak (53994) [facility] ([facility]) [address] [place] [address] 14168 Platelets (Bld) [#/Vol] 570 x10*3/uL High 150-450 [facility] Comment on above: Performed By: #### 5 7021-8 #### KALEIGH PEREZKARLI L ([id number]) [facility]) [address] [place] [address] RBC (Bld) [#/Vol] 3.78 x10*6/uL Low 4.50-5.90 [facility] Comment on above: Performed By: #### 5 7021-8 #### KALEIGH MORILLOANAYASAHILER L (48426) [facility] ([facility]) [address] [place] [address] WBC (Bld) [#/Vol] 20.8 x10*3/uL High 4.4-11.3 [facility] Comment on above: Performed By: #### 5 7021-8 #### KALEIGH CHANDLERFAWN L (98400) [facility] ([facility]) [address] [place] [address] CT ABDOMEN PELVIS W IV CONTR [place] 08-21-2024 CT ABDOMEN PELVIS W IV CONTRAST Interpreted By: Sherif Shirley and [place] Conner STUDY: CT ABDOMEN PELVIS W IV CONTRAST; 08/21/2024 10:35 pm INDICATION: Signs/Symptoms:pneumoperiton eum likely due to slipped PEG. COMPARISON: CT chest 08/21/2024 ACCESSION NUMBER(S): [id number] ORDERING CLINICIAN: LAUREN RUCKER TECHNIQUE: CT of the abdomen and pelvis was performed. Standard contiguous axial images were obtained at 3 mm slice thickness through the abdomen and pelvis. Coronal and sagittal reconstructions at 3 mm slice thickness were performed. 75 ml of contrast omni 350 were administered intravenously without immediate complication. FINDINGS: LOWER CHEST: Multifocal centrilobular ground-glass and tree-in-bud opacities in the vnzfp-xzcrpqc-kyzo-left lower lobes, favored to represent aspiration or infectious/inflammatory etiology. The heart is normal in size. ABDOMEN: LIVER: The liver is normal in size without evidence of focal liver lesions. BILE DUCTS: Mild prominence of the intra and extrahepatic biliary ducts, with the common bile duct measuring 0.8 cm. No evidence of obstructing stone or mass. GALLBLADDER: The gallbladder is nondistended and without evidence of radiopaque stones. PANCREAS: The pancreas appears unremarkable without evidence of ductal dilatation or masses. SPLEEN: The spleen is normal in size without focal lesions. ADRENAL GLANDS: Bilateral adrenal glands appear normal. KIDNEYS AND URETERS: The kidneys are normal in size and enhance symmetrically. Few bilateral hypodense lesions are too small to characterize, favored to represent simple cysts. No hydroureteronephrosis or nephroureterolithiasis is identified. PELVIS: BLADDER: The urinary bladder appears normal without abnormal wall thickening. REPRODUCTIVE ORGANS: The prostate is not enlarged. BOWEL: There is a gastrostomy tube with inflated balloon within the gastric wall/stomach lumen. The inflated gastrostomy bumper and stomach wall are abutting the anterior abdominal wall. There is extensive oral contrast throughout the small and large bowel loops, extending to the sigmoid colon. There is no extravasation of contrast within the abdomen and pelvis to suggest bowel perforation. Evaluation of the bowel wall is limited. Appendix is visualized, and is filled with contrast. VESSELS: There is no aneurysmal dilatation of the abdominal aorta. The IVC appears normal. PERITONEUM/RETROPERITONEUM/L YMPH NODES: Large volume pneumoperitoneum, favored to be related to the gastrostomy tube. No evidence of bowel perforation no abdominopelvic lymphadenopathy is present. BONES AND ABDOMINAL WALL: No suspicious osseous lesions are identified. Degenerative changes are noted in the lower thoracic and lumbar spine with spinal hardware in the lower lumbar spine. There is a small amount of soft tissue air within the abdominal wall at the site of the gastrostomy tube. Moderate abdominal wall edema. IMPRESSION: 1. Large volume pneumoperitoneum which is likely secondary to PEG tube placement. The PEG tube bumper appears within the lumen of the stomach and the gastric wall is abutting the anterior abdominal wall. There is oral contrast throughout the stomach, small bowel, and large bowel extending to the sigmoid colon without evidence of contrast extravasation to suggest bowel perforation. 2. Multifocal centrilobular ground-glass and tree-in-bud opacities in the right iarkq-sbzjjqk-ayga-left lower lobes which is favored to represent aspiration or an infectious/inflammatory etiology. I personally reviewed the image(s)/study and resident interpretation. I agree with the findings as stated by resident Tramaine Roach. Data analyzed and images interpreted at [facility], [place], [place]. MACRO: None Signed by: Sherif Shirley 08/22/2024 8:21 AM Dictation workstation: [id number] [facility] CT CHEST WO IV CONTRASTon CT CHEST WO IV CONTRAST Interpreted By: Rafael Handley, STUDY: CT CHEST WO IV CONTRAST; 08/21/2024 2:19 pm INDICATION: Signs/Symptoms:staging workup. COMPARISON: None. ACCESSION NUMBER(S): [id number] ORDERING CLINICIAN: LAUREN RUCKER TECHNIQUE: Helical data acquisition of the chest was obtained without IV contrast material. Images were reformatted in axial, coronal, and sagittal planes. FINDINGS: LUNGS AND AIRWAYS: There is irregular thickening the supraglottic airway. There is asymmetric soft tissue and effacement of the left piriform sinus. The glottic trachea appears patent. Evaluation of the lung parenchyma is limited by biapical pleural thickening and patchy parenchymal airspace opacities within the lower lobes. There are scattered basilar tree-in-bud opacities. There is diffuse basilar peribronchial thickening with mucoid impaction. Subcentimeter right major fissural lung nodule most likely reactive/benign. MEDIASTINUM AND ALLEN, LOWER NECK AND AXILLA: The visualized thyroid gland is within normal limits. No evidence of thoracic lymphadenopathy by CT criteria. Esophagus appears within normal limits as seen. HEART AND VESSELS: There is mild atherosclerotic calcifications of the thoracic aorta. Main pulmonary artery and its branches are normal in caliber. There is severe coronary artery calcifications. The study is not optimized for evaluation of coronary arteries. The cardiac chambers are not enlarged. No evidence of pericardial effusion. UPPER ABDOMEN: There is postprocedural pneumoperitoneum consistent with recent PEG tube placement. No gross evidence of intra-abdominal lymphadenopathy or significant hepatic disease. CHEST WALL AND OSSEOUS STRUCTURES: Patient is status post cervical spine fusion. Multilevel degenerative changes of the thoracic spine. IMPRESSION: 1. Evaluation of the lung parenchyma for metastatic disease is somewhat limited by extensive bibasilar airspace opacities most likely inflammatory/infectious or related to aspiration. Recommend continued follow-up surveillance after clearance of these bibasilar parenchymal airspace opacities. No gross evidence of metastatic disease. 2. Mucosal irregularity/edema of the supraglottic trachea and correlate with history of head and neck radiation. Correlate with recent head and neck CT imaging. MACRO: None Signed by: Rafael Handley 08/21/2024 6:20 PM Dictation workstation: [id number] Normal [facility] Lactateon 08-21-2024 Lactate [Moles/Vol] 0.8 mmol/L Normal 0.4-2.0 [facility] Comment on above: Order Comment: Venip uncture immediately after or during the administration of Metamizole may lead to falsely low results. Testing should be performed immediately prior to Metamizole dosing. Performed By: #### 5 902-2 #### KALEIGH Novak ([id number]) [facility] ([facility]) [address] [place] [address] 01617 Magnesiumon 08-21-2024 Magnesium [Mass/Vol] 2.00 mg/dL Normal 1.60-2.40 [facility] Comment on above: Performed By: #### 5 902-2 #### KALEIGH Novak ([id number]) [facility] ([facility]) [address] [place] [address] 10154 Magnesium [Mass/Vol] 2.26 mg/dL Normal 1.60-2.40 [facility] Comment on above: Performed By: #### 5 7021-8 #### KALEIGH Novak ([id number]) [facility] ([facility]) [address] [place] [address] 30663 Prealbuminon 08-21-2024 Prealbumin [Mass/Vol] 9.7 mg/dL Low 18.0-40.0 [facility] Comment on above: Performed By: #### 5 7021-8 #### KALEIGH Novak ([id number]) [facility] ([facility]) [address] [place] [address] 67443 Renal function 2000 panelon 08-21-2024 Albumin BCP dye [Mass/Vol] 2.8 g/dL Low 3.4-5.0 [facility] Comment on above: Performed By: #### 5 902-2 #### KALEIGH Novak (48077) [facility] ([facility]) [address] [place] [address] 27768 Anion gap [Moles/Vol] 12 mmol/L Normal -20 [facility] Comment on above: Performed By: #### 5 902-2 #### KALEIGH CURRY L ([id number]) [facility] ([facility]) [address] [place] [address] Calcium [Mass/Vol] 8.2 mg/dL Low 8.6-10.6 [facility] Comment on above: Performed By: #### 5 902-2 #### KALEIGH CURRY L ([id number]) [facility] ([facility]) [address] [place] [address] Chloride [Moles/Vol] 103 mmol/L Normal 98-107 [facility] Comment on above: Performed By: #### 5 902-2 #### KALEIGH CURRY L ([id number]) [facility] ([facility]) [id number] [place] [address] 52866 CO2 [Moles/Vol] 27 mmol/L Normal 21-32 [facility] Comment on above: Performed By: #### 5 902-2 #### KALEIGH CURRY L ([id number]) [facility] ([facility]) [address] [place] [address] Creatinine [Mass/Vol] 0.52 mg/dL Normal 0.50-1.30 [facility] Comment on above: Performed By: #### 5 902-2 #### KALEIGH CURRY L ([id number]) [facility] ([facility]) [address] [place] [address] GFR/1.73 sq M.predicted MDRD (S/P/Bld) [Vol rate/Area] mL/min/{1.73_m2} Normal >60 [facility] Comment on above: Result Comment: Calc ulations of estimated GFR are performed using the 2020 CKD-EPI Study Refit equation without the race variable for the IDMS-Traceable creatinine methods. https://jasn.asnjournals.org/content//ASN.498115687 8 Performed By: #### 5 902-2 #### KALEIGH CURRY L ([id number]) [facility] ([facility]) [address] [place] [address] Glucose [Mass/Vol] 87 mg/dL Normal 74-99 [facility] Comment on above: Performed By: #### 5 902-2 #### KALEIGH Novak ([id number]) [facility] ([facility]) [address] [place] [address] Phosphate [Mass/Vol] 3.0 mg/dL Normal 2.5-4.9 [facility] Comment on above: Result Comment: The performance characteristics of phosphorus testing in heparinized plasma have been validated by the individual laboratory site where testing is performed. Testing on heparinized plasma is not approved by the FDA; however, such approval is not necessary. Performed By: #### 5 902-2 #### KALEIGH Novak ([id number]) [facility] ([facility]) [address] [place] [address] 39929 Potassium [Moles/Vol] 3.8 mmol/L Normal 3.5-5.3 [facility] Comment on above: Performed By: #### 5 902-2 #### KALEIGH Novak ([id number]) [facility] ([facility]) [address] [place] [address] 40752 Sodium [Moles/Vol] 138 mmol/L Normal 136-145 [facility] Comment on above: Performed By: #### 5 902-2 #### KALEIGH Novak ([id number]) [facility] ([facility]) [address] [place] [address] 05160 Urea nitrogen [Mass/Vol] 20 mg/dL Normal 6-23 [facility] Comment on above: Performed By: #### 5 902-2 #### KALEIGH Novak ([id number]) [facility] ([facility]) [address] [place] [address]102 Albumin BCP dye [Mass/Vol] 3.1 g/dL Low 3.4-5.0 [facility] Comment on above: Performed By: #### 5 7021-8 #### KALEIGH Novak ([id number]) [facility] ([facility]) [address] [place] [address] Anion gap [Moles/Vol] 12 mmol/L Normal 10-20 [facility] Comment on above: Performed By: #### 5 7021-8 #### KALEIGH Novak ([id number]) [facility] ([facility]) [address] [place] [address] Calcium [Mass/Vol] 8.5 mg/dL Low 8.6-10.6 [facility] Comment on above: Performed By: #### 5 7021-8 #### KALEIGH Novak ([id number]) [facility] ([facility]) [address] [place] [address] Chloride [Moles/Vol] 103 mmol/L Normal 98-107 [facility] Comment on above: Performed By: #### 5 7021-8 #### KALEIGH Novak ([id number]) [facility] ([facility]) [address] [place] [address] CO2 [Moles/Vol] 24 mmol/L Normal 21-32 [facility] Comment on above: Performed By: #### 5 7021-8 #### KALEIGH Novak ([id number]) [facility] ([facility]) [address] [place] [address] Creatinine [Mass/Vol] 0.59 mg/dL Normal 0.50-1.30 [facility] Comment on above: Performed By: #### 5 7021-8 #### KALEIGH CURRY L ([id number]) [facility] ([facility]) [address] [place] [address]177 GFR/1.73 sq M.predicted MDRD (S/P/Bld) [Vol rate/Area] mL/min/{1.73_m2} Normal >60 [facility] Comment on above: Result Comment: Calc ulations of estimated GFR are performed using the 2020 CKD-EPI Study Refit equation without the race variable for the IDMS-Traceable creatinine methods. https://jasn.asnjournals.org/content/early//ASN.101032797 8 Performed By: #### 5 7021-8 #### KALEIGH Novak ([id number]) [facility] ([facility]) [address] [place] [address] 04229 Glucose [Mass/Vol] 131 mg/dL High 74-99 [facility] Comment on above: Performed By: #### 5 7021-8 #### KALEIGH Novak ([id number]) [facility] ([facility]) [address] [place] [address] 22045 Phosphate [Mass/Vol] 3.1 mg/dL Normal 2.5-4.9 [facility] Comment on above: Result Comment: The performance characteristics of phosphorus testing in heparinized plasma have been validated by the individual laboratory site where testing is performed. Testing on heparinized plasma is not approved by the FDA; however, such approval is not necessary. Performed By: #### 5 7021-8 #### KALEIGH Novak ([id number]) [facility] ([facility]) [address] [place] [address] 23191 Potassium [Moles/Vol] 3.4 mmol/L Low 3.5-5.3 [facility] Comment on above: Performed By: #### 5 7021-8 #### KALEIGH CURRY L ([id number]) [facility] ([facility]) [address] [place] [address] 08238 Sodium [Moles/Vol] 136 mmol/L Normal 136-145 [facility] Comment on above: Performed By: #### 5 7021-8 #### KALEIGH CURRY L ([id number]) [facility] ([facility]) [address] [place] [address] 41324 Urea nitrogen [Mass/Vol] 28 mg/dL High 6-23 [facility] Comment on above: Performed By: #### 5 7021-8 #### KALEIGH Novak ([id number]) [facility] ([facility]) [address] [place] [address] 55858 Thyrotropinon 08-21-2024 TSH Qn 0.29 m[IU]/L Low 0.44-3.98 [facility] Comment on above: Order Comment: TSH t esting is performed using different testing methodology at [facility] than at [facility]. Direct result comparisons should only be made within the same method. Performed By: #### 5 902-2 #### KALEIGH Novak ([id number]) [facility] ([facility]) [address] [place], [place] [address] Thyroxine.freeon 08-21-2024 Free T4 [Mass/Vol] 1.21 ng/dL Normal 0.78-1.48 [facility] Comment on above: Order Comment: Thyro xine Free testing is performed using different testing methodology at [facility] than at [facility]. Direct result comparisons should only be made within the same method. Performed By: #### 5 7021-8 #### KALEIGH Novak ([id number]) [facility] ([facility]) [address] [place], [place] [address] Triiodothyronine.freeon 08-03 Free T3 [Mass/Vol] 1.2 pg/mL Low 2.3-4.2 [facility] Comment on above: Performed By: #### 5 902-2 #### KALEIGH Novak ([id number]) [facility] ([facility]) [address] [place], [place] [address] XR ABDOMEN 1 VIEWon 08-21-20 XR ABDOMEN 1 VIEW Interpreted By: Liliana Reyes, STUDY: XR ABDOMEN 1 VIEW; 08/21/2024 2:20 pm INDICATION: Signs/Symptoms:re-evaluate stomach distension. COMPARISON: 2023, 7:59 a.m. ACCESSION NUMBER(S): [id number] ORDERING CLINICIAN: LAUREN RUCKER FINDINGS: Nonobstructive bowel gas pattern. Limited evaluation of pneumoperitoneum on supine imaging, however no gross evidence of free air is noted. Stomach no longer distended. Peg tube projected over the region of the gastric fundus. Air outlines the properitoneal fat stripe, adjacent to the liver. Air projected over the mid upper abdomen (Cupola sign). There is a moderate fecal burden. Osseous structures demonstrate no acute bony changes. IMPRESSION: 1. Findings suggestive of pneumoperitoneum. 2. Moderate fecal burden. MACRO: None Signed by: Liliana Gonsalez 08/21/2024 4:52 PM Dictation workstation: [id number] [facility] XR ABDOMEN 1 VIEW Interpreted By: Liliana Reyes, STUDY: XR ABDOMEN 1 VIEW; 08/21/2024 8:13 am INDICATION: Signs/Symptoms:Abdominal pain after PEG placement. COMPARISON: None. ACCESSION NUMBER(S): [id number] ORDERING CLINICIAN: EVERTON JARRELL FINDINGS: Nonobstructive bowel gas pattern. Limited evaluation of pneumoperitoneum on supine imaging, however no gross evidence of free air is noted. Peg tube projected over the region of the gastric fundus. Rounded soft tissue density, which displaces colon, projected within the midabdomen, question enlarged fluid-filled stomach, mass can not be excluded. There is suggestion of of free air within the right midabdomen. Osseous structures demonstrate no acute bony changes. IMPRESSION: 1. Peg tube with a distal portion projected over the gastric fundus. MACRO: None Signed by: Liliana Gonsalez 08/21/2024 10:38 AM Dictation workstation: [id number] [facility] CBC panel Auto (Bld)on 08-20 Erythrocyte distribution width (RBC) [Ratio] 12.7 % Normal 11.5-14.5 [facility] Comment on above: Performed By: #### 5 7021-8 #### KALEIGH Novak ([id number]) [facility] ([facility]) [address] [place], [place] [address] Hematocrit (Bld) [Volume fraction] 35.1 % Low 41.0-52.0 [facility] Comment on above: Performed By: #### 5 7021-8 #### KALEIGH Novak ([id number]) [facility] ([facility]) [address] [place] [address] 20764 Hemoglobin (Bld) [Mass/Vol] 11.0 g/dL Low 13.5-17.5 [facility] Comment on above: Performed By: #### 5 7021-8 #### KALEIGH Novak ([id number]) [facility] ([facility]) [address] [place] [address] MCH (RBC) [Entitic mass] 30.2 pg Normal 26.0-34.0 [facility] Comment on above: Performed By: #### 5 7021-8 #### KALEIGH Novak ([id number]) [facility] ([facility]) [address] [place] [address] MCHC (RBC) [Mass/Vol] 31.3 g/dL Low 32.0-36.0 [facility] Comment on above: Performed By: #### 5 7021-8 #### KALEIGH Novak ([id number]) [facility] ([facility]) [address] [place] [address] 35691 MCV (RBC) [Entitic vol] 96 fL Normal 80-100 [facility] Comment on above: Performed By: #### 5 7021-8 #### KALEIGH Novak ([id number]) [facility] ([facility]) [address] [place] [address] 15611 Nucleated RBC/100 WBC (Bld) [Ratio] 0.0 /100 WBCs Normal 0.0-0.0 [facility] Comment on above: Performed By: #### 5 7021-8 #### KALEIGH Novak ([id number]) [facility] ([facility]) [address] [place] [address] 62200 Platelets (Bld) [#/Vol] 504 x10*3/uL High 150-450 [facility] Comment on above: Performed By: #### 5 7021-8 #### KALEIGH Novak ([id number]) [facility] ([facility]) [address] [place] [address] 75271 RBC (Bld) [#/Vol] 3.64 x10*6/uL Low 4.50-5.90 [facility] Comment on above: Performed By: #### 5 7021-8 #### KALEIGH Novak ([id number]) [facility] ([facility]) [address] [place] [address] 52573 WBC (Bld) [#/Vol] 10.7 x10*3/uL Normal 4.4-11.3 [facility] Comment on above: Performed By: #### 5 7021-8 #### KALEIGH Novak ([id number]) [facility] ([facility]) [address] [place] [address]5880 Glucose Test strip manual (B ld) [Mass/Vol]on 08-20-2024 Glucose [Mass/Vol] 93 mg/dL Normal 74-99 [facility] Comment on above: Performed By: #### 5 7021-8 #### KALEIGH Novak ([id number]) [facility] ([facility]) [address] [place] [address] 92479 Glucose [Mass/Vol] 89 mg/dL Normal 74-99 [facility] Comment on above: Performed By: #### 2 341-6 #### KALEIGH Novak ([id number]) [facility] ([facility]) [address] [place] [address] 85431 Glucose [Mass/Vol] 60 mg/dL Low 74-99 [facility] Comment on above: Performed By: #### 2 341-6 #### KALEIGH Novak ([id number]) [facility] ([facility]) [address] [place] [address] 29323 Magnesiumon 08-20-2024 Magnesium [Mass/Vol] 2.20 mg/dL Normal 1.60-2.40 [facility] Comment on above: Performed By: #### 5 7021-8 #### KALEIGH Novak ([id number]) [facility] ([facility]) [address] [place] [address] 42448 Renal function 2000 panelon 08-20-2024 Albumin BCP dye [Mass/Vol] 3.1 g/dL Low 3.4-5.0 [facility] Comment on above: Performed By: #### 5 7021-8 #### KALEIGH Novak ([id number]) [facility] ([facility]) [address] [place] [address] 09099 Anion gap [Moles/Vol] 12 mmol/L Normal 10-20 [facility] Comment on above: Performed By: #### 5 7021-8 #### KALEIGH PEREZTZER L ([id number]) [facility] ([facility]) [address] [place] [address] Calcium [Mass/Vol] 8.5 mg/dL Low 8.6-10.6 [facility] Comment on above: Performed By: #### 5 7021-8 #### KALEIGH MORILLOMOTZER L ([id number]) [facility] ([facility]) [address] [place] [address] Chloride [Moles/Vol] 100 mmol/L Normal 98-107 [facility] Comment on above: Performed By: #### 5 7021-8 #### KALEIGH MORILLOMOTZER L ([id number]) [facility] ([facility]) [address] [place] [address] CO2 [Moles/Vol] 28 mmol/L Normal 21-32 [facility] Comment on above: Performed By: #### 5 7021-8 #### KALEIGH PEREZTZER L ([id number]) [facility] ([facility]) [address] [place] [address] Creatinine [Mass/Vol] 0.54 mg/dL Normal 0.50-1.30 [facility] Comment on above: Performed By: #### 5 7021-8 #### KALEIGH MORILLOMOTZER L ([id number]) [facility] ([facility]) [address] [place] [address] 31239 GFR/1.73 sq M.predicted MDRD (S/P/Bld) [Vol rate/Area] mL/min/{1.73_m2} Normal >60 [facility] Comment on above: Result Comment: Calc ulations of estimated GFR are performed using the 2020 CKD-EPI Study Refit equation without the race variable for the IDMS-Traceable creatinine methods. https://jasn.asnjournals.org/content//ASN.640820030 8 Performed By: #### 5 7021-8 #### KALEIGH Novak ([id number]) [facility] ([facility]) [address] [place] [address] 24381 Glucose [Mass/Vol] 76 mg/dL Normal 74-99 [facility] Comment on above: Performed By: #### 5 7021-8 #### KALEIGH Novak ([id number]) [facility] ([facility]) [address] [place] [address] 49445 Phosphate [Mass/Vol] 3.3 mg/dL Normal 2.5-4.9 [facility] Comment on above: Result Comment: The performance characteristics of phosphorus testing in heparinized plasma have been validated by the individual laboratory site where testing is performed. Testing on heparinized plasma is not approved by the FDA; however, such approval is not necessary. Performed By: #### 5 7021-8 #### KALEIGH Novak ([id number]) [facility] ([facility]) [address] [place] [address] 22619 Potassium [Moles/Vol] 3.8 mmol/L Normal 3.5-5.3 [facility] Comment on above: Performed By: #### 5 7021-8 #### KALEIGH Novak ([id number]) [facility] ([facility]) [address] [place] [address] 50573 Sodium [Moles/Vol] 136 mmol/L Normal 136-145 [facility] Comment on above: Performed By: #### 5 7021-8 #### KALEIGH CURRY L ([id number]) [facility] ([facility]) [address] [place] [address] 31573 Urea nitrogen [Mass/Vol] 17 mg/dL Normal 6-23 [facility] Comment on above: Performed By: #### 5 7021-8 #### KALEIGH CURRY L ([id number]) [facility] ([facility]) [address] [place] [address] 47735 Surgical pathology studyon 0 08-20-2024 Surgical pathology study Pathology report.total SEE COMMENT Surgical Pathology Case: [id number] Authorizing Provider: Dre Mitchell MD Collected: 08/20/2024 1348 Ordering Location: [facility] Received: 08/20/2024 1352 [facility] [place] Pathologist: Adolfo Wells DDS Specimen: SOFT TISSUE RESECTION, supraglottic mass Path report.final diagnosis SEE COMMENT Larynx, supraglottic mass, biopsy: - 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 Laboratory comment By the signature on this report, the individual or group listed as making the Final Interpretation/Diagnosis certifies that they have reviewed this case. Path report.relevant Hx SEE COMMENT Pre-op diagnosis: Malignant neoplasm of esophagus, unspecified location (Multi) [C15.9] Path report.gross observation SEE COMMENT A. Received fresh for aggregate consultation, labeled with the patient's name and hospital number and *supraglottic mass , are multiple fragments of white-pink soft tissue aggregating to 1.5 x 1.0 x 0.5 cm. The specimen is submitted in toto for intraoperative consultation, in 1 cassette. EXO/PLP LAB AP INTRAOPERATIVE CONSULTATION SEE COMMENT A: Received Date and Time: 08/20/2024 1:49pm Called Date and Time: 08/20/2024 2:06pm Intraoperative Diagnosis: FSA1) Invasive squamous cell carcinoma. Intraoperative Consult Pathologist(s): Savita Serrano MD and Criselda Birch MD [facility] Comment on above: Order Comment: Pre-o p diagnosis:Malignant neoplasm of esophagus, unspecified location (Multi) [C15.9] Blood type and Indirect anti body screen panel (Bld)on 08-19-2024 ABO group Nom (Bld) A [facility] Comment on above: Performed By: #### 3 4532-2 #### KALEIGH Novak ([id number]) [facility] ([facility]) [address] [place] [address] Blood group antibody screen Ql Negative [facility] Comment on above: Performed By: #### 3 4532-2 #### KALEIGH Novak ([id number]) [facility] ([facility]) [address] [place] [address] D Ag Ql (Bld) Positive Normal [facility] Comment on above: Result Comment: 2nd ABO test required. Order and Collect VERAB Performed By: #### 3 4532-2 #### KALEIGH Novak ([id number]) [facility] ([facility]) [id number] [place] [address] 05637 CBC W Auto Differential pane l (Bld)on 08-19-2024 Basophils (Bld) [#/Vol] 0.05 x10*3/uL Normal 0.00-0.10 [facility] Comment on above: Performed By: #### 5 7021-8 #### KALEIGH Novak ([id number]) [facility] ([facility]) [address] [place] [address] 11776 Basophils/100 WBC (Bld) 0.4 % Normal 0.0-2.0 [facility] Comment on above: Performed By: #### 5 7021-8 #### KALEIGH Novak ([id number]) [facility] ([facility]) [address] [place] [address] 76627 Eosinophils (Bld) [#/Vol] 0.01 x10*3/uL Normal 0.00-0.70 [facility] Comment on above: Performed By: #### 5 7021-8 #### KALEIGH Novak ([id number]) [facility] ([facility]) [address] [place] [address] 75217 Eosinophils/100 WBC (Bld) 0.1 % Normal 0.0-6.0 [facility] Comment on above: Performed By: #### 5 7021-8 #### KALEIGH Novak ([id number]) [facility] ([facility]) [address] [place] [address] 34886 Erythrocyte distribution width (RBC) [Ratio] 12.4 % Normal 11.5-14.5 [facility] Comment on above: Performed By: #### 5 7021-8 #### KALEIGH Novak ([id number]) [facility] ([facility]) [address] [place] [address] 05459 Hematocrit (Bld) [Volume fraction] 34.3 % Low 41.0-52.0 [facility] Comment on above: Performed By: #### 5 7021-8 #### KALEIGH Novak ([id number]) [facility] ([facility]) [address] [place] [address] 83072 Hemoglobin (Bld) [Mass/Vol] 10.9 g/dL Low 13.5-17.5 [facility] Comment on above: Performed By: #### 5 7021-8 #### KALEIGH Novak (76984) [facility] ([facility]) [address] [place] [address] 88336 Immature granulocytes (Bld) [#/Vol] 0.06 x10*3/uL Normal 0.00-0.70 [facility] Comment on above: Performed By: #### 5 7021-8 #### KALEIGH Novak ([id number]) [facility] ([facility]) [address] [place] [address] 00687 Immature granulocytes/100 WBC (Bld) 0.5 % Normal 0.0-0.9 [facility] Comment on above: Result Comment: Belkys ture Granulocyte Count (IG) includes promyelocytes, myelocytes and metamyelocytes but does not include bands. Percent differential counts (%) should be interpreted in the context of the absolute cell counts (cells/UL). Performed By: #### 5 7021-8 #### KALEIHG Novak ([id number]) [facility] ([facility]) [address] [place] [address] 63657 Lymphocytes (Bld) [#/Vol] 1.48 x10*3/uL Normal 1.20-4.80 [facility] Comment on above: Performed By: #### 5 7021-8 #### KALEIGH Novak ([id number]) [facility] ([facility]) [address] [place] [address] 60723 Lymphocytes/100 WBC (Bld) 11.2 % Normal 13.0-44.0 [facility] Comment on above: Performed By: #### 5 7021-8 #### KALEIGH Novak ([id number]) [facility] ([facility]) [address] [place] [address] MCH (RBC) [Entitic mass] 30.6 pg Normal 26.0-34.0 [facility] Comment on above: Performed By: #### 5 7021-8 #### KALEIGH Novak ([id number]) [facility] ([facility]) [address] [place] [address] 90289 MCHC (RBC) [Mass/Vol] 31.8 g/dL Low 32.0-36.0 [facility] Comment on above: Performed By: #### 5 7021-8 #### KALEIGH Novak (45646) [facility] ([facility]) [address] [place] [address] 84307 MCV (RBC) [Entitic vol] 96 fL Normal 80-100 [facility] Comment on above: Performed By: #### 5 7021-8 #### KALEIGH Novak ([id number]) [facility] ([facility]) [address] [place] [address] 62956 Monocytes (Bld) [#/Vol] 0.54 x10*3/uL Normal 0.10-1.00 [facility] Comment on above: Performed By: #### 5 7021-8 #### KALEIGH Novak ([id number]) [facility] ([facility]) [address] [place] [address] 02922 Monocytes/100 WBC (Bld) 4.1 % Normal 2.0-10.0 [facility] Comment on above: Performed By: #### 5 7021-8 #### KALEIGH Novak ([id number]) [facility] ([facility]) [address] [place] [address] 10293 Neutrophils (Bld) [#/Vol] 11.12 x10*3/uL High 1.20-7.70 [facility] Comment on above: Result Comment: Perc ent differential counts (%) should be interpreted in the context of the absolute cell counts (cells/uL). Performed By: #### 5 7021-8 #### KALEIGH Novak ([id number]) [facility] ([facility]) [address] [place] [address] 66091 Neutrophils/100 WBC (Bld) 83.7 % Normal 40.0-80.0 [facility] Comment on above: Performed By: #### 5 7021-8 #### KALEIGH CURRY L ([id number]) [facility] ([facility]) [address] [place] [address] 11444 Nucleated RBC/100 WBC (Bld) [Ratio] 0.0 /100 WBCs Normal 0.0-0.0 [facility] Comment on above: Performed By: #### 5 7021-8 #### KALEIGH CURRY L (57331) [facility] ([facility]) [address] [place] [address] 20756 Platelets (Bld) [#/Vol] 512 x10*3/uL High 150-450 [facility] Comment on above: Performed By: #### 5 7021-8 #### KALEIGH CURRY L ([id number]) [facility] ([facility]) [address] [place] [address] 45430 RBC (Bld) [#/Vol] 3.56 x10*6/uL Low 4.50-5.90 [facility] Comment on above: Performed By: #### 5 7021-8 #### KALEIGH CURRY L ([id number]) [facility] ([facility]) [address] [place] [address] 16782 WBC (Bld) [#/Vol] 13.3 x10*3/uL High 4.4-11.3 [facility] Comment on above: Performed By: #### 5 7021-8 #### KALEIGH PEREZTZFAWN L ([id number]) [facility] ([facility]) [address] [place] [address] SOFT TISSUE NECK W IV CON TRASTon 08-19-2024 CT SOFT TISSUE NECK W IV CONTRAST Interpreted By: Deangelo Argueta and Doc Redd STUDY: CT SOFT TISSUE NECK W IV CONTRAST; 08/19/2024 10:58 pm INDICATION: Signs/Symptoms:concern for malignancy. COMPARISON: None. ACCESSION NUMBER(S): [id number] ORDERING CLINICIAN: DAVID CRUZ TECHNIQUE: Axial CT images of the neck were obtained. The patient received 75 ML of Omnipaque 350 intravenous contrast agent. The images were reformatted in angled axial, coronal and sagittal planes. FINDINGS: Oral Cavity, Pharynx and Larynx: Small lobular area of hypoattenuation within the left palatine tonsil measuring up to 0.8 cm (series 201, image 76). There is no evidence of tonsillith. The remaining structures of the oropharynx and nasopharynx are within normal limits. Streak artifact from anterior cervical discectomy and fusion of C5-C7 evaluation of the hypopharynx. There is a heterogenous mass in the anterior aspect of the hypopharynx, tracking anteriorly along the right aryepiglottic fold, abutting the inferior surface of the epiglottis. The mass measures approximately 3.2 X 2.3 x 2.0 cm (series 201, image 101 and series 207, image 61). There is leftward shift of the trachea and left vocal cord. The mass extends anteriorly and disrupts the hyoid bone, with a small osseous fragment visualized (series 201, image 100). Retropharyngeal and Prevertebral Soft Tissues: Unremarkable. Lymph nodes: There are few non specific bilateral neck nodes, probably reactive in etiology. Neck vessels: Bilateral neck vessels are normal in course and caliber and appear patent. Thyroid gland: The thyroid gland is unremarkable in size and appearance. Parotid and submandibular glands: Bilateral parotid and submandibular glands are unremarkable in appearance. Paranasal Sinuses and Mastoids: Visualized paranasal sinuses and bilateral mastoids are clear. Visualized orbital structures are unremarkable. Biapical pleural thickening/scarring along with emphysematous changes in the visualized lungs. Postsurgical changes of anterior cervical discectomy and fusion of C5-C7. IMPRESSION: 1. Heterogenous hypopharyngeal mass measures 3.2 X 2.3 X 2.0 cm and extends anteriorly along the right aryepiglottic fold, abutting the inferior surface of the epiglottis. The mass causes leftward displacement of laryngeal structures and erosions of the anterior hyoid bone. Findings are concerning for malignancy. Recommend further evaluation with direct visualization. 2. No suspicious cervical lymphadenopathy is identified. 3. Subcentimeter area of hypoattenuation within the left palatine tonsil which may represent a small collection. I personally reviewed the image(s)/study and resident interpretation. I agree with the findings as stated by resident Tramaine Roach. Data analyzed and images interpreted at [facility], [place], [place]. MACRO: None Signed by: Deangelo Argueta 08/20/2024 12:01 AM Dictation workstation: [id number] Normal [facility] Coagulation tissue factor in ducedon 08-19-2024 PT Coag (PPP) [Time] 13.1 s High 9.8-12.8 [facility] Comment on above: Performed By: #### 5 902-2 #### KALEIGH Novak ([id number]) [facility]) [address] [place] [address] 71004 Comprehensive metabolic 2000 panelon 08-19-2024 Albumin BCP dye [Mass/Vol] 3.8 g/dL Normal 3.4-5.0 [facility] Comment on above: Result Comment: ASHLEY ED HEMOLYSIS DETECTED. The result may be falsely elevated due to hemolysis or other interferents. Clinical correlation is recommended. Repeat testing may be considered. Performed By: #### 2 4323-8 #### KALEIGH Novak ([id number]) [facility] ([facility]) [address] [place] [address] 41578 ALP [Catalytic activity/Vol] 159 U/L High 33-120 [facility] Comment on above: Result Comment: ASHLEY ED HEMOLYSIS DETECTED. The result may be falsely decreased due to hemolysis or other interferents. Clinical correlation is recommended. Repeat testing may be considered. Performed By: #### 2 4323-8 #### KALEIGH Novak ([id number]) [facility] ([facility]) [address] [place] [address] 97891 ALT With P-5'-P [Catalytic activity/Vol] 22 U/L Normal 10-52 [facility] Comment on above: Result Comment: Dena ents treated with Sulfasalazine may generate falsely decreased results for ALT. Performed By: #### 2 4323-8 #### KALEIGH Novak ([id number]) [facility] ([facility]) [address] [place] [address] Anion gap [Moles/Vol] 14 mmol/L Normal 10-20 [facility] Comment on above: Performed By: #### 2 4323-8 #### KALEIGH Novak ([id number]) [facility] ([facility]) [id number] [place] [address]200 AST With P-5'-P [Catalytic activity/Vol] 43 U/L High 9-39 [facility] Comment on above: Result Comment: ASHLEY ED HEMOLYSIS DETECTED. The result may be falsely elevated due to hemolysis or other interferents. Clinical correlation is recommended. Repeat testing may be considered. Performed By: #### 2 4323-8 #### KALEIGH Novak (56300) [facility] ([facility]) [address] [place] [address] 41386 Bilirubin [Mass/Vol] 0.6 mg/dL Normal 0.0-1.2 [facility] Comment on above: Performed By: #### 2 4323-8 #### KALEIGH Novak ([id number]) [facility] ([facility]) [address] [place] [address]71 Calcium [Mass/Vol] 9.0 mg/dL Normal 8.6-10.6 [facility] Comment on above: Performed By: #### 2 4323-8 #### KALEIGH Novak ([id number]) [facility]) [address] [place] [address] 36704 Chloride [Moles/Vol] 98 mmol/L Normal 98-107 [facility] Comment on above: Performed By: #### 2 4323-8 #### KALEIGH Novak (77053) [facility]) [address] [place] [address] 74409 CO2 [Moles/Vol] 27 mmol/L Normal 21-32 [facility] Comment on above: Performed By: #### 2 4323-8 #### KALEIGH Novak ([id number]) [facility]) [address] [place] [address] Creatinine [Mass/Vol] 0.58 mg/dL Normal 0.50-1.30 [facility] Comment on above: Performed By: #### 2 4323-8 #### KALEIGH Novak ([id number]) [facility]) [address] [place] [address] GFR/1.73 sq M.predicted MDRD (S/P/Bld) [Vol rate/Area] mL/min/{1.73_m2} Normal >60 [facility] Comment on above: Result Comment: Calc ulations of estimated GFR are performed using the 2020 CKD-EPI Study Refit equation without the race variable for the IDMS-Traceable creatinine methods. https://jasn.asnjournals.org/content/early/ASN.205997811 8 Performed By: #### 2 4323-8 #### KALEIGH Novak ([id number]) [facility]) [address] [place] [address] Glucose [Mass/Vol] 70 mg/dL Low 74-99 [facility] Comment on above: Performed By: #### 2 4323-8 #### KALEIGH Novak (09846) [facility]) [address] [place] [address] Potassium [Moles/Vol] 5.3 mmol/L Normal 3.5-5.3 [facility] Comment on above: Result Comment: ASHLEY ED HEMOLYSIS DETECTED. The result may be falsely elevated due to hemolysis or other interferents. Clinical correlation is recommended. Repeat testing may be considered. Performed By: #### 2 4323-8 #### KALEIGH CURRY L ([id number]) [facility]) [address] [place] [address] Protein [Mass/Vol] 7.5 g/dL Normal 6.4-8.2 [facility] Comment on above: Performed By: #### 2 4323-8 #### KALEIGH Novak ([id number]) [facility]) [address] [place] [address] 35773 Sodium [Moles/Vol] 134 mmol/L Low 136-145 [facility] Comment on above: Performed By: #### 2 4323-8 #### KALEIGH Novak ([id number]) [facility]) [address] [place] [address]390 Urea nitrogen [Mass/Vol] 15 mg/dL Normal 6-23 [facility] Comment on above: Performed By: #### 2 4323-8 #### KALEIGH Novak ([id number]) [facility]) [address] [place] [address]758 Magnesiumon 08-19-2024 Magnesium [Mass/Vol] 2.68 mg/dL High 1.60-2.40 [facility] Comment on above: Result Comment: ASHLEY ED HEMOLYSIS DETECTED. The result may be falsely elevated due to hemolysis or other interferents. Clinical correlation is recommended. Repeat testing may be considered. Performed By: #### 1 9123-9 #### KALEIGH Novak ([id number]) [facility]) [address] [place] [address] 79279 PT Coag (PPP) [Time]on 08-19 INR Coag (PPP) [Relative time] 1.2 High 0.9-1.1 [facility] Comment on above: Performed By: #### 5 902-2 #### KALEIGH Novak ([id number]) [facility]) [address] [place] [address]12[address] Phosphateon 08-19-2024 Phosphate [Mass/Vol] 3.6 mg/dL Normal 2.5-4.9 [facility] Comment on above: Result Comment: ASHLEY ED HEMOLYSIS DETECTED. The result may be falsely elevated due to hemolysis or other interferents. Clinical correlation is recommended. Repeat testing may be considered. The performance characteristics of phosphorus testing in heparinized plasma have been validated by the individual laboratory site where testing is performed. Testing on heparinized plasma is not approved by the FDA; however, such approval is not necessary. Performed By: #### 2 777-1 #### KALEIGH PEREZKARLI Novak ([id number]) [facility] ([facility]) [address] [place] [address] XR CHEST 1 VIEWon 08-19-2024 XR CHEST 1 VIEW Interpreted By: Deangelo Herrera, STUDY: XR CHEST 1 VIEW; 08/19/2024 10:34 pm INDICATION: Signs/Symptoms:preop. COMPARISON: None. ACCESSION NUMBER(S): [id number] ORDERING CLINICIAN: DAVID CRUZ FINDINGS: CARDIOMEDIASTINAL SILHOUETTE: Cardiomediastinal silhouette is normal in size and configuration. LUNGS: No pulmonary consolidation, pleural effusion or pneumothorax. ABDOMEN: No remarkable upper abdominal findings. BONES: No acute osseous abnormality. Incompletely visualized ACDF hardware overlies the lower cervical spine. IMPRESSION: No radiographic evidence of acute cardiopulmonary pathology. MACRO: None. Signed by: Deangelo Argueta 08/19/2024 10:37 PM Dictation workstation: [id number] [facility] Shiv 07-24-2024 L Specimen: Re ceived: 07/27/24 Status: CHUN Req Num: [id number] Spec Type: Cytology Subm Dr: Roosevelt Cantrell MD Tissues: A FNA SLIDES NOPATH (LT NECK MASS) Procedures: HE/2, Cyto Int and Re, PAPSTN/7 Age/ Patient Sex Location Account Attending Physician Jorgito Altamirano/Fer LABELL [id number] Roosevelt Cantrell MD SPEC NUM: [id number] RECD: 07/27/24 STATUS: IBETHJean Marie REQ NUM: [id number] LAUREN: 07/24/24- SUBM DR: Roosevelt Cantrell MD ENTERED: 07/27/[address] [facility] [address]: Alyson Moreno MD SPEC TYPE: Cytology DEPT: [facility] ENTERED BY: [id number] RECV BY: [id number] ORDERED: HE/2, Cyto Int and Re, PAPSTN/7 ORDERED: HE/2, Cyto Int and Re, PAPSTN/7 Pathological Diagnosis Left neck mass, FNA cytology: -Many PMN with occasionally admixed and markedly degenerated cellular or tissue clusters, consistent with sampling of the necrotizing abscess -In addition, few keratinized squames are also focally admixed in 2 smears, also may suggest sampling of the infected keratinized cyst -No viable tumor cell observable or suspected -Cell block section showing only scant cellularity of mostly degenerated PMN, and is not contributory -Clinical correlations are also suggested for appropriate patient clinical management Clinical Information left neck mass Gross Description Received fixed in cytolyt is <1 ml colorless slightly hazy fluid for cytology said to have been obtained as leck ness mass. ThinPrep and cell block preparations are prepared for microscopic examination. Also received are 6 spray fixed smeared slides for pap for microscopic examination.(CC/nh) -------- Specimen: [id number] Received: 07/27/24 Status: CHUN Theron Num: [id number] Spec Type: Cytology Subm Dr: Roosevelt Cantrell MD Tissues: A FNA SLIDES NOPATH (LT NECK MASS) Procedures: HE/2, Cyto Int and Re, PAPSTN/7 -------- Patient: Jorgito Altamirano [id number] (Continued) -------- Specimen: [id number] Received: 07/27/24 (Continued) Signed (signature on file) Tal Jeter MD 08/04/24 1717 -------- Specimen: [id number] Received: 07/27/24 Status: IBETHJean Marie Crump Num: [id number] Spec Type: Cytology Subm Dr: Roosevelt Cantrell MD Tissues: A FNA SLIDES NOPATH (LT NECK MASS) Procedures: HE/2, Cyto Int and Re, PAPSTN/7 -------- Patient: Jorgito Altamirano [id number] (Continued) -------- Specimen: Received: 07/27/24 (Continued) Microscopic Description Microscopic examinations are performed supporting the above interpretation CPT Codes 22296 36123 -------- -------- Specimen: [id number] Received: 07/27/24 Status: CHUN Crump Num: [id number] Spec Type: Cytology Subm Dr: Roosevelt Cantrell MD Tissues: A FNA SLIDES NOPATH (LT NECK MASS) Procedures: HE/2, Cyto Int and Re PAPSTN/7 -------- Patient: Jorgito Altamirano [id number] (Continued) -------- Signed (signature on file) Tal Jteer MD 08/04/24 1717 [facility] Encounters Encounter Date Encounter Type Care Provider Facility Start: 08-19-2024 End: 08-19-2024 Emergency department patient visit FARNIA NANCY [facility] Start: 08-19-2024 End: 08-25-2024 Evaluation and management of inpatient GARCIA GALVAN [facility] Start: 08-19-2024 End: 08-19-2024 ambulatory CAPRI ARREDONDO Not Available Start: 07-24-2024 End: 07-24-2024 ambulatory PHYSICIAN NO [facility] Work Phone: Start: 07-24-2024 End: 07-24-2024 Departed Referred PHYSICIAN NO [facility] Path Spec [facility] Payers Date Payer Category Payer Self-pay [id number] 2023 Unknown [id number] 1965 Unknown [id number] [id number] 1965 Unknown [id number] [id number] 1965 Unknown [id number] [id number] Medicare Anthem MCR PFFS [id number] Unknown [place] BC/BS [id number] Unknown [id number] [id number] [id number] Social History Date Type Detail Facility Start: 10-29-2017 Tobacco smoking stat us NHIS Smoker (finding) [facility] Start: 1965 Sex Assigned At Male F [facility] Evaluation note Note Date & Type Note Facility Evaluation note No assessment information availa [facility] Work Phone: Family History No Family History Records Found Relationship Condition Age at Onset Recorded Date/T kortney father Malignant neoplasm Unknown Diabetes mellitus Unknown mother Malignant neoplasm Unknown Unknown Summary Purpose Advance Directives No Advanced Directives Records FoundNo Advanced Directives Records FoundNo Advanced Directives Records Found Additional Source Comments Care Teams (unrecognized sec tion and content) Team Status: Active Member Role Status Dates PHYSICIAN NO FAMILY Primary Care Provider Active Team Status: Inactive Member Role Status Dates PHYSICIAN NO FAMILY Primary Care Provider Active Start: July 24, 2024 End: July 24, 2024 Roosevelt Cantrell MD Attending Provider Active Sta rt: July 24, 2024 End: July 24, 2024 Goals (unrecognized section and content) Goals may be documented in a n alternate section (unrecognized sect ion and content) No Status Records FoundNo Status Records FoundNo Status Records Found INFORMATION SOURCE (unrecogn ized section and content) DATE CREATED AUTHOR 08/06/2024 [facility] DATE CREATED AUTHOR AUTHOR'S ORGANIZ ATION 08/21/2024 [facility] EPIC DATE CREATED AUTHOR AUTHOR'S ORGANIZ ATION 2024 [facility] FOR RECORDS PERTAINING TO PATIENTS WHO ARE OR HAVE BEEN ENROLLED IN A CHEMICAL DEPENDENCY/SUBSTANCEABUSE PROGRAM, SOME INFORMATION MAY BE OMITTED. This clinical summary was aggregated from multiple sources. Caution should be exercised in using it in the provision of clinical care. This summary normalizes information from multiple sources, and as a consequence, information in this document may materially change the coding, format and clinical context of patient data. In addition, data may be omitted in some cases. CLINICAL DECISIONS SHOULD BE BASED ON THE PRIMARY CLINICAL RECORDS. [facility]. provides no warranty or guarantee of the accuracy or completeness of information in this document.
--- NOTE | 2024-08-30 17:41 | ECG_ITS ---
[facility] Test Date: 2024-08-30 Pat Name: LOKESH ALTAMIRANO Department: Room: - Gender: Male Analysis Consultant: : 1965 Requested By: ROOSEVELT BEAVERS Order Number: [id number] Reading MD: MAVIS LEES Measurements Intervals Keyes Rate: 62 P: 77 SC: 164 QRS: 57 QRSD: 82 T: 99 QT: 424 QTc: 429 Interpretive Statements 1100 Sinus rhythm 9110 normal ECG No previous ECG available for comparison Electronically Signed On 08-31-2024 22:54:58 EDT by MAVIS LEES
--- NOTE | 2024-08-30 17:42 | CT_ITS ---
[facility] [place] [address] [place], [place] [address] Patient Name: LOKESH ALTAMIRANO MRN: [id number] date: 1965 Sex: M Assigned Patient Location: ED.MAIN Current Patient Location: Accession/Order Number: [id number] Exam Date: 08/30/2024 18:30 Report Date: 08/30/2024 19:59 At the request of: SHASHI ROBERT Procedure: CT abdomen pelvis w con EXAM: CT abdomen pelvis w con HISTORY: Abdominal pain, recent feeding tube placement . History of head and neck cancer. COMPARISON: None. TECHNIQUE: CT abdomen pelvis with 100 mL Omnipaque IV contrast. Axial scans with reformatted coronal sagittal images. Individualized radiation dose reduction used for this exam. FINDINGS: Lower chest: Evaluation limited by motion artifact and arm artifact.. Prominent interstitial without consolidation or edema lung mass. ABDOMEN: Homogeneous liver enhancement without focal liver lesion. Dilated intra and extrahepatic biliary tract. Possible pneumobilia. There is pneumoperitoneum in the abdomen especially around the liver and epigastric area. The tube seen in the stomach. Fluid-filled gallbladder with mild enhancement of the wall, no gas seen in the Millimeters coronal images with abrupt termination the area of the pancreas/duodenum. Pancreatic duct is also mildly prominent. Biliary obstruction may be present. Fluid-filled gallbladder with mild enhancement of the wall. There is pneumoperitoneum in the right upper quadrant with gas seen around the liver. No definite gas seen within the gallbladder or portal venous or hepatic venous system. Feeding tube in the stomach which does not appear distended. Distended cecum, ascending and transverse colon with large amount of gas and moderate stool moderate gas and stool in the left colon and pelvic colon.. No small bowel distention. Questionable small amount of fluid around the liver no significant ascites seen. No loculated abdominal fluid collection or abscess. . Soft tissue assessment somewhat limited due to paucity of intra-abdominal fat. No abnormality of the adrenal glands, or spleen. Pancreatic duct mildly prominent without pancreatic mass or peripancreatic inflammation. Tortuous aorta with moderate to large amount of calcified plaque. No aneurysm. Normal venous enhancement. Normal renal enhancement without mass or hydronephrosis. Pelvis: Nondilated bowel loops. No definite mass or adenopathy or free fluid. Fluid seen within the bladder. MUSCULOSKELETAL: No suspicious lytic or blastic bone lesion. Severe degenerative changes throughout the lumbar spine with 1 cm anterolisthesis L4, no pars defect. Previous lumbar surgery with left-sided pedicle screws and disc spacer L4-5. Significant disc narrowing and facet arthropathy seen at multiple levels. CT/CT abdomen pelvis w con IMPRESSION: Study limited by motion and streak artifact from the patient's arm. Soft tissue assessment also limited by paucity of intra-abdominal/pelvic gas. 1. Prominent markings lower chest without definite consolidation or pleural effusion. 2. Pneumoperitoneum noted. Feeding tube seen within the stomach. No significant free fluid, ascites or evidence of abscess. 3. Dilated intra and extrahepatic biliary tract possibly due to biliary obstruction in the area of the pancreatic head and/or duodenum. Pancreatic duct also mildly prominent. Correlate clinically and if indicated consider biliary ultrasound.. 4. Distended ascending and transverse colon with gas and stool. Diminished caliber of the left colon pelvic colon. No small bowel distention. 5. Previous lumbar surgery with L4-5 hardware and disc spacer. Severe diffuse degenerative changes throughout the lumbar spine. Electronically authenticated by: OSVALDO STEWART Date: 08/30/2024 19:59
--- NOTE | 2024-08-30 17:46 | ED.GENADUL1 ---
HPI HPI - General Adult General Chief complaint: Abdominal Pain Stated complaint: Abdominal Pain Time Seen by Provider: 08/30/24 17:29 Source: patient Mode of arrival: Wheelchair Limitations: no limitations History of Present Illness HPI narrative: 59-year-old male brought in by family for evaluation of abdominal pain. Patient is very thin and cachectic, has neck mass awaiting surgery and has unfortunately had Significant weight loss over the past several months. He was stubborn. Per family at bedside. Patient has notable hoarse voice which is not new. He had a feeding tube placed 2 weeks ago and the initial tube feeds were painful per patient and family. They cut them in half and he was able to tolerate them. Patient reports occasional abdominal pain generalized through his abdomen and no bowel movement for the past 4 days. Patient states he was not on like for him to go a week without a bowel movement prior to feeding tube insertion. He denies any chest pain or shortness of breath. Patient mostly concerned with abdominal pain and recent feeding tube. Location: Reports abdomen Radiation: Reports non-radiation Severity: moderate Quality: Reports aching and sharp Pain Consistency: Reports intermittent and colicky Treatments prior to arrival: Reports none Related Data Home Medications ?Medication ?Instructions ?Recorded ?Confirmed esomeprazole magnesium 40 mg 40 mg G-tube Q24H 08/30/24 08/30/24 granules delayed release for susp gabapentin 250 mg/5 mL oral 300 mg feeding tube DAILY 08/30/24 08/30/24 solution naloxone 4 mg/actuation nasal 4 mg intranasal Q2M 08/30/24 08/30/24 spray (Rextovy) nicotine 7 mg/24 hr daily 1 patch transdermal DAILY 08/30/24 08/30/24 transdermal patch (Nicoderm CQ) olanzapine 2.5 mg tablet 2.5 mg feeding tube DAILY 08/30/24 08/30/24 oxycodone 5 mg/5 mL oral solution 20 mg feeding tube Q3H PRN pain 08/30/24 08/30/24 Allergies Allergy/AdvReac Type Severity Reaction Status Date / Time morphine AdvReac phlebitis Verified 08/30/24 17:36 Opioid HPI Opioid Management Most Recent Opioid Data: No Data to Display Review of Systems ROS Constitutional Reports: fatigue; Denies: fever Ears, nose, mouth, and throat Denies: throat pain or neck pain Cardiovascular Denies: chest pain or palpitations Respiratory Denies: shortness of breath or cough Gastrointestinal Reports: abdominal pain and constipation; Denies: vomiting or diarrhea Genitourinary Denies: painful urination or urinary frequency Musculoskeletal Denies: back pain or neck pain Integumentary/Breast Denies: rash Neurological Denies: headache or numbness in extremities Psychiatric Denies: anxiety or mood swings Endocrine Denies: excessive urination Allergic/Immunologic Denies: hives [facility] Medical History (Updated 08/30/24 @ 21:01 by CHIKA Hauser) Mass of left side of neck ?R22.1 - Localized swelling, mass and lump, neck (ICD-10) Paresthesia ?R20.2 - Paresthesia of skin (ICD-10) Osteoporosis ?M81.0 - Age-related osteoporosis without current pathological fracture (ICD-10) Surgical History (Updated 07/24/24 @ 14:14 by Katie Wells) H/O fine needle aspiration with imaging guidance ?Z98.890 - Other specified postprocedural states (ICD-10) H/O cervical spinal arthrodesis ?Z98.1 - Arthrodesis status (ICD-10) History of lumbar fusion ?Z98.1 - Arthrodesis status (ICD-10) Exam Narrative Exam Narrative: Nurses notes and vital signs reviewed and patient is not hypoxic. General: The patient appears thin, cachectic. Skin: Warm, dry, no pallor noted. Poor skin turgor noted. Head: Normocephalic, atraumatic Neck: Supple, no prominent adenopathy. Eye: Pupils are equal, round and reactive to light, EOMI Ears, Nose, Mouth, and Throat: TM are clear, normal light reflex, oral mucosa is moist, no posterior oropharynx erythema or hypertrophy, uvula is mid-line Cardiovascular: Regular Rate and Rhythm Respiratory: Patient is in no distress, no accessory muscle use, lungs are clear to auscultation, no wheezing, rales or rhonchi. Chest Wall: no tenderness Back: non-tender, no CVA tenderness Musculoskeletal: normal ROM, no tenderness, no swelling GI: Bowel sounds diminished, generalized tenderness to palpation, no masses appreciated. No rebound, guarding, or rigidity noted. Feeding tube present, clean appearing ostomy site. No evidence of erythema or discharge. Neurological: A&O x4 Psychiatric: Cooperative. Voice is soft. History of neck mass Constitutional Vital Signs, click to edit/add: Last Vital Signs Temp 98.5 F 08/30/24 17:33 Pulse 62 08/30/24 20:22 Resp 16 08/30/24 20:22 BP 106/72 08/30/24 22:31 Pulse Ox 95 08/30/24 20:22 O2 Del Method Room Air 08/30/24 20:22 Course Vital Signs Vital signs: Vital Signs Temperature 98.5 F 08/30/24 17:33 Pulse Rate 70 08/30/24 17:33 Respiratory Rate 16 08/30/24 17:33 Blood Pressure 108/63 08/30/24 17:33 Pulse Oximetry 94 L 08/30/24 17:33 Oxygen Delivery Method Room Air 08/30/24 17:33 Temperature 98.5 F 08/30/24 17:33 Pulse Rate 62 08/30/24 20:22 Respiratory Rate 16 08/30/24 20:22 Blood Pressure 106/72 08/30/24 22:31 Pulse Oximetry 95 08/30/24 20:22 Oxygen Delivery Method Room Air 08/30/24 20:22 Medical Decision Making MDM Narrative Medical decision making narrative: Patient reports painful feedings with initial insertion, feedings were cut to half and tolerated this better. Recent development of abdominal pain over the past day or 2, concern with no BM for 4 days. Patient without fever or chills. He does take liquid oxycodone for pain. Tertiary care being performed through [facility] Patient reevaluated with laboratory studies discussed, CT showing a large amount of stool throughout his colon and clinical exam concerning more for constipation. Does not have any peritoneal findings. Patient agreeable to soapsuds enema. The patient is to followup with primary care physician in next 1-2 days or to return to the emergency department should any of the signs or symptoms worsen or new symptoms develop. Patient had questions answered. The patient agrees with the following Diagnosis and Treatment plan and the patient will be discharged home. SHARED APC VISIT, PHYSICIAN ATTESTATION: [id number] I performed a substantive part of the MDM during the patient?s E/M visit. I personally evaluated and examined the patient. I personally made or approved the documented management plan and acknowledge its risk of complications. Lab Data Lab results reviewed: Yes I reviewed the patient's lab results Labs: Lab Results 08/30/24 Range/Units 17:50 WBC 9.8 (4.0-11.0) 10^3/uL RBC 3.25 L (4.70-6.10) 10^6/uL Hgb 10.0 L (14.0-18.0) g/dL Hct 30.9 L (42.0-54.0) % MCV 95.1 H (80.0-94.0) fL MCH 30.8 (25.9-34.0) pg MCHC 32.4 (29.9-35.2) g/dL RDW 12.7 (11.0-15.0) % Plt Count 701 H (150-450) 10^3/uL MPV 9.7 (9.5-13.5) fL Neut % (Auto) 69.9 (43.0-75.0) % Lymph % (Auto) 14.1 L (20.5-60.0) % [place] % (Auto) 14.5 H (1.7-12.0) % Eos % (Auto) 0.7 L (0.9-7.0) % Baso % (Auto) 0.5 (0.2-2.0) % Neut # (Auto) 6.9 H (1.4-6.5) 10^3/uL Lymph # (Auto) 1.4 (1.2-3.8) 10^3/uL [place] # (Auto) 1.4 H (0.3-0.8) 10^3/uL Eos # (Auto) 0.1 (0.0-0.7) 10^3/uL Baso # (Auto) 0.1 (0.0-0.1) 10^3/uL Abs Immat Gran (auto) 0.03 (0.00-0.03) 10^3/uL Imm/Tot Granulo (auto) 0.3 (0.0-0.5) % Sodium 132 L (136-145) mmol/L Potassium 4.5 (3.5-5.1) mmol/L Chloride 94 L (98-107) mmol/L Carbon Dioxide 37.5 H (21.0-32.0) mmol/L Anion Gap 5.0 BUN 15.0 (7.0-18.0) mg/dL Creatinine 0.70 (0.70-1.30) mg/dL Est GFR ( Amer) >60 (>=60) Est GFR (Non-Af Amer) >60 (>=60) BUN/Creatinine Ratio 21.4 Glucose 97 (74-106) mg/dL Lactate 1.1 (0.4-2.0) mmol/L Calcium 9.1 (8.5-10.1) mg/dL Total Bilirubin 0.6 (0.2-1.0) mg/dL AST 27 (15-37) U/L ALT 27 (16-63) U/L Alkaline Phosphatase 135 H (46-116) U/L Troponin I High Sens 4.4 (4.0-76.1) pg/mL Total Protein 6.6 (6.4-8.2) g/dL Albumin 2.4 L (3.4-5.0) g/dL Globulin 4.2 g/dL Albumin/Globulin Ratio 0.6 Lipase 12.0 L (16.0-77.0) U/L Imaging Data CT scan - abdomen: Radiologist's impression: ITS Impressions Abdomen/Pelvis CT 08/30/24 17:42 IMPRESSION: Study limited by motion and streak artifact from the patient's arm. Soft tissue assessment also limited by paucity of intra-abdominal/pelvic gas. 1. Prominent markings lower chest without definite consolidation or pleural effusion. 2. Pneumoperitoneum noted. Feeding tube seen within the stomach. No significant free fluid, ascites or evidence of abscess. 3. Dilated intra and extrahepatic biliary tract possibly due to biliary obstruction in the area of the pancreatic head and/or duodenum. Pancreatic duct also mildly prominent. Correlate clinically and if indicated consider biliary ultrasound.. 4. Distended ascending and transverse colon with gas and stool. Diminished caliber of the left colon pelvic colon. No small bowel distention. 5. Previous lumbar surgery with L4-5 hardware and disc spacer. Severe diffuse degenerative changes throughout the lumbar spine. Electronically authenticated by: OSVALDO STEWART Date: 08/30/2024 19:59 ECG Data Attestation: I personally reviewed and interpreted this ECG as follows: Interpretation: EKG interpretation: Emergency Department physician interpretation, normal sinus rhythm 62bpm, no ectopy, no ST segment elevation, normal axis. Discharge Plan Discharge Chief Complaint: Abdominal Pain Clinical Impression: Abdominal pain, Constipation Patient Disposition: Home, Self-Care Mode of Transportation: Private Vehicle Prescriptions / Home Meds: No Action esomeprazole magnesium [address] for susp in packet 40 mg G-tube Q24H gabapentin 250 mg/5 mL solution 300 mg feeding tube DAILY Rx Instructions: Take at bedtime olanzapine 2.5 mg tablet 2.5 mg feeding tube DAILY Rx Instructions: Take at bedtime oxycodone 5 mg/5 mL solution 20 mg feeding tube Q3H PRN (Reason: pain) nicotine [Nicoderm CQ] 7 mg/24 hr patch 24 hour 1 patch transdermal DAILY naloxone [Rextovy] 4 mg/actuation spray,non-aerosol 4 mg intranasal Q2M Rx Instructions: spray 1 dose into ONE nostril; alternate nostrils w each dose until help arrives Print Language: Nauruan Instructions: Constipation (ED), Abdominal Pain (ED) Additional Instructions: Keep follow up with [facility]. Discuss tube feeding progress/ challenges. Referrals: John Cantrell MD [Primary Care Provider] - As soon as possible Discharge Date/Time: 08/30/24 22:32
[2024-08-30] MEDS: 0.9 % SODIUM CHLORIDE 1,000 ML 999 ML IV (17:59)
[2024-08-30] MEDS: KETOROLAC TROMETHAMINE 30 MG/ML VIAL 15 MG IVP (18:01)
[2024-08-30] MEDS: ONDANSETRON PF 4 MG/2 ML VIAL IV (18:01)
[2024-08-30] MEDS: FAMOTIDINE/PF 20 MG/2 ML VIAL IV (18:02)
[2024-08-30 18:07] VITALS: BP 99/61; PULSE 62; O2SAT 93
[2024-08-30 18:19] LABS: Basophils Absolute Auto 0.1 10^3/uL (0.0-0.1); Basophils Percent Auto 0.5 % (0.2-2.0); Eosinophils Absolute Auto 0.1 10^3/uL (0.0-0.7); Eosinophils Percent Auto 0.7 % (0.9-7.0); Hematocrit 30.9 % (42.0-54.0); Immature Granulocytes Abs Auto 0.03 10^3/uL (0.00-0.03); Immature Granulocytes Pct Auto 0.3 % (0.0-0.5); Lymphocytes Absolute Auto 1.4 10^3/uL (1.2-3.8); Lymphocytes Percent Auto 14.1 % (20.5-60.0); Mean Corpuscular HGB Conc 32.4 g/dL (29.9-35.2); Mean Corpuscular Hemoglobin 30.8 pg (25.9-34.0); Mean Corpuscular Volume 95.1 fL (80.0-94.0); Mean Platelet Volume 9.7 fL (9.5-13.5); Monocytes Absolute Auto 1.4 10^3/uL (0.3-0.8); Monocytes Percent Auto 14.5 % (1.7-12.0); Neutrophils Absolute Auto 6.9 10^3/uL (1.4-6.5); Neutrophils Percent Auto 69.9 % (43.0-75.0); Platelet Count 701 10^3/uL (150-450); Red Blood Count 3.25 10^6/uL (4.70-6.10); Red Cell Distribution Width 12.7 % (11.0-15.0); White Blood Count 9.8 10^3/uL (4.0-11.0)
[2024-08-30 18:35] LABS: Alanine Aminotransferase 27 U/L (16-63); Albumin Globulin Ratio 0.6; Albumin Level 2.4 g/dL (3.4-5.0); Alkaline Phosphatase 135 U/L (46-116); BUN Creatinine Ratio 21.4; Bilirubin Total 0.6 mg/dL (0.2-1.0); Calcium 9.1 mg/dL (8.5-10.1); Carbon Dioxide 37.5 mmol/L (21.0-32.0); Chloride 94 mmol/L (98-107); Estimated GFR (African America >60 (>=60); Estimated GFR (Non-African Ame >60 (>=60); Globulin 4.2 g/dL; Glucose 97 mg/dL (74-106); Sodium 132 mmol/L (136-145); Total Protein 6.6 g/dL (6.4-8.2); Troponin I High Sensitivity 4.4 pg/mL (4.0-76.1)
[2024-08-30 18:40] LABS: Aspartate Amino Transferase 27 U/L (15-37); Potassium 4.5 mmol/L (3.5-5.1)
[2024-08-30 18:44] LABS: Lactate/Lactic Acid 1.1 mmol/L (0.4-2.0)
[2024-08-30 19:11] VITALS: BP 104/58; PULSE 60; O2SAT 96
[2024-08-30 20:22] VITALS: BP 100/62; PULSE 62; O2SAT 95
[2024-08-30 22:31] VITALS: BP 106/72
== END 2024-08-30 22:32 | disposition home or self-care (01) ==
PROVIDERS: Personal Emergency Response Attendant; Emergency Provider Internal Medicine; Family Provider Family Medicine; PCP Family Medicine
DX: R10.9 Unspecified abdominal pain (principal); K59.00 Constipation, unspecified
CPT/HCPCS: 36415; 74177; 80053; 83605; 83690; 84484; 85025; 93005; 96374; 96375; 99285; J1885; J2405; Q9967